=== PATIENT | male | born 1945 | race Caucasian/White ===

== ENCOUNTER 2017-08-29 17:50 | Inpatient (IN) | payer MEDICARE, BC ==
[2017-08-29 18:29] VITALS: BP 124/70
--- NOTE | 2017-08-29 18:39 | NUR ---
RECEIVED PT VIA W/C FROM ADMISSIONS SOB NOTED PT PLACED ON O2 2 LPM NC VSS EATING MEAL AT THIS TIME
[2017-08-29 19:00] VITALS: BP 157/55
--- NOTE | 2017-08-29 19:55 | NUR ---
RESUMED CARE OF PT, UP IN CHAIR WITH EYES CLOSED RESPIRATIONS EVEN AND UNLABORED ON 2LPM VIA NC. NO NEEDS NOTED AT THIS TIME, WILL CONTINUE TO MONITOR. CALL LIGHT IN REACH. SEE NURSE ASSESSMENT.
[2017-08-29 20:52] LABS: BASOPHILS 0.5 % (0-2); EOSINOPHILS 2.3 % (0-7); HEMATOCRIT 48.4 % (42.0-54.0); HEMOGLOBIN 14.7 g/dL (13.5-17.5); IMMATURE GRANULOCYTES 0.9 % (0-5); LYMPHOCYTES 17.4 % (15-50); MCH 29.2 pg (26.0-34.0); MCHC 30.4 g/dL (31.0-37.0); MCV 96.2 fL (80.0-100.0); MEAN PLATELET VOLUME 9.8 fL (7.4-10.4); MONOCYTES 7.5 % (2-11); NEUTROPHILS 71.4 % (40-80); PLATELET COUNT 168 10x3/uL (130-400); RBC 5.03 10x6/uL (4.20-6.10); WBC 7.9 10x3/uL (4.8-10.8)
--- NOTE | 2017-08-29 21:02 | NUR ---
GONE FOR XRAY
[2017-08-29 21:24] LABS: ALBUMIN 2.7 g/dL (3.4-5.0); ALKALINE PHOSPHATASE 55 U/L (46-116); ALT (SGPT) 33 U/L (10-68); BILIRUBIN - TOTAL 0.25 mg/dL (0.2-1.3); CALC OSMOLALITY 288 mosm/kg (275-300); CALCIUM 8.7 mg/dL (8.5-10.1); CARBON DIOXIDE 32.8 mmol/L (21.0-32.0); CHLORIDE - SERUM 104 mmol/L (98-107); CKMB 2.6 U/L (0.0-3.6); CREATINE KINASE 115 UL (21-232); CREATININE - SERUM 1.5 mg/dL (0.6-1.3); GLUCOSE 143 mg/dL (74-106); POTASSIUM - SERUM 4.6 mmol/L (3.5-5.1); PROTEIN - SERUM 6.3 g/dL (6.4-8.2); SODIUM 141 mmol/L (136-145); UREA NITROGEN 30 mg/dL (7-18); eGFR NON AFRICAN AMERICAN 49 mL/min (90-120)
[2017-08-29 21:25] LABS: TROPONIN-I < 0.017 ng/mL (0.000-0.060)
--- NOTE | 2017-08-29 21:54 | NUR ---
22 GAUGE TO LEFT FOREARM X 3 STICKS. SOLUMEDROL 125MG GIVEN IVP. WILL CONTINUE TO MONITOR.
[2017-08-29 23:23] VITALS: BMI 38.6
[2017-08-30] VITALS: BP 154/59
[2017-08-30 04:00] VITALS: BP 180/73
--- NOTE | 2017-08-30 04:25 | NUR ---
TRAVEL ADMINISTRATOR AT BEDSIDE TO OBTAIN VITALS, CALL LIGHT IN REACH. WILL CONTINUE WITH PLAN OF CARE.
[2017-08-30] MEDS ORDERED: SPIRIVA18 MCG INH (04:34)
[2017-08-30] MEDS ORDERED: UROXATRAL10 MG PO (04:34)
[2017-08-30] MEDS ORDERED: PROTONIX40 MG PO (04:36)
[2017-08-30] MEDS ORDERED: NOVOLOG INJ (04:36)
[2017-08-30] MEDS ORDERED: LISINOPRIL2.5 MG PO (04:36)
[2017-08-30] MEDS ORDERED: HYDROCHLOROTH12.5 M1 PO ×2 (04:37→04:40)
[2017-08-30] MEDS ORDERED: ADVAIR 250/501 DISK INH (04:37)
[2017-08-30] MEDS ORDERED: ZOCOR40 MG PO (04:38)
[2017-08-30] MEDS ORDERED: NEURONTIN 300300 MG PO (04:38)
[2017-08-30] MEDS ORDERED: REQUIP1 MG PO (04:39)
[2017-08-30] MEDS ORDERED: PROSCAR5 MG PO (04:39)
[2017-08-30] MEDS ORDERED: TRILIPIX135 MG PO (04:39)
--- NOTE | 2017-08-30 06:33 | NUR ---
NO CHANGES FROM PREVIOUS ASSESSMENT, CALL LIGHT IN REACH. WILL CONTINUE TO MONITOR.
--- NOTE | 2017-08-30 07:22 | NUR ---
PT SITTING UP IN BED SLEEPING NO S/S DISTRESS NOTED RR EVEN AND UNLABORED WILL CONT TO MONITOR
[2017-08-30 08:00] VITALS: BP 154/102
[2017-08-30 10:53] VITALS: BMI 38.2
[2017-08-30 12:03] VITALS: BP 115/92
[2017-08-30 15:54] VITALS: BP 158/63
--- NOTE | 2017-08-30 16:40 | NUR ---
PT SITTING UP IN BED AT BEDSIDE DENIES NEEDS
[2017-08-30 19:00] VITALS: BP 124/67
--- NOTE | 2017-08-30 19:37 | NUR ---
PT RESTING IN BED. ASA'CARSARMIUT. IV TO LEFT FOREARM INFUSING LWVAQUIN AT 100. PT ON 4L O2 NC. PT FSBS IS 328. PT DENIES ANY NEEDS. NO S/S OF DISTRESS. BED LOW AND CALL LIGHT IN REACH. WILL CPOC
--- NOTE | 2017-08-30 20:34 | NUR ---
PT RESTING IN BED. HOB 45. PT HAS O2 4L NC. BLOOD SUGAR 328 12 UNITS OF HUMALOG GIVEN TO LLQ. PT DENIES ANY NEEDS. NO S/S OF DISTRESS. WILL CPOC
--- NOTE | 2017-08-30 20:55 | NUR ---
PT SITTING ON SIDE OF BED TO TAKE 2100 PILLS AND EAT A SNACK WITH INSULIN. PT DENIES ANY NEEDS. NO S/S OF DISTRESS. WILL CPOC
--- NOTE | 2017-08-31 02:05 | NUR ---
PT UP TO SIDE OF BED FOR A SANDWINCH AND A CUP OF WATER. PT ATE 100% AND DRANK 200. PT NOW SITTING ON SIDE OF BED READING. DENIES NEEDS. NO S/S OF DISTRESS. WILL CPOC
--- NOTE | 2017-08-31 02:38 | NUR ---
PT C/O THROAT AND NOSE BEING DRY. PUT HUMIDITY ON NC TO HELP WITH DRYNESS. PT DENIES ANY NEEDS. NO S/S OF DISTRESS. WILL CPOC
[2017-08-31 04:00] VITALS: BP 144/64
--- NOTE | 2017-08-31 05:55 | NUR ---
PT FSBS IS 309, HUMALOG OF 12 UNITS NEEDED. WILL GIVE A SNACK SINCE TRAYS WONT BE HERE FOR A COUPLE HOURS. PT DID NOT SLEEP MUCH LAST NIGHT. HUMIDITY WORKED.PT NOSE AND THROAT FEELS BETTER. PT DENIES ANY NEEDS. NO S/S OF DISTRESS. WILL CPOC
--- NOTE | 2017-08-31 07:18 | NUR ---
pt sitting up in bed denies needs will cont to monitor
[2017-08-31 08:16] VITALS: BP 155/74
[2017-08-31 11:45] VITALS: BP 148/61
[2017-08-31 14:43] LABS: BASOPHILS 0 % (0-2); EOSINOPHILS 0 % (0-7); HEMATOCRIT 46.7 % (42.0-54.0); HEMOGLOBIN 14.6 g/dL (13.5-17.5); IMMATURE GRANULOCYTES 0.9 % (0-5); LYMPHOCYTES 3.9 % (15-50); MCH 29.4 pg (26.0-34.0); MCHC 31.3 g/dL (31.0-37.0); MEAN PLATELET VOLUME 10.2 fL (7.4-10.4); MONOCYTES 4.6 % (2-11); NEUTROPHILS 90.6 % (40-80); PLATELET COUNT 188 10x3/uL (130-400); RBC 4.97 10x6/uL (4.20-6.10); RDW 14.6 % (11.5-14.5)
[2017-08-31 15:05] LABS: ANION GAP 8.5 mmol/L (8-16); CARBON DIOXIDE 33.3 mmol/L (21.0-32.0); CREATININE - SERUM 1.5 mg/dL (0.6-1.3); POTASSIUM - SERUM 4.8 mmol/L (3.5-5.1)
[2017-08-31 16:00] VITALS: BP 164/67
--- NOTE | 2017-08-31 17:44 | NUR ---
PT PIV INFILTRATED. DC PIV WITH CATH TIP INTACT. RESITED TO R FA 22G X1 STICK. FAMILY AT BEDSIDE DENIES NEEDS
--- NOTE | 2017-08-31 19:15 | NUR ---
ROUNDING NOTE: PT IS AAOX3, SITTING UP IN BED WATCHING TV UPON ENTERING ROOM. PT HAS IVF- 1/2NS RUNNING AT [facility] W/ LEVAQUIN IV PIGGYBACK. PT IS CURRENTLY ON 4L OF OXYGEN VIA NC. RESP NONLABORED. DENIES SOB/DYSPNEA. LUNG SOUNDS SHOW DECREASED BREATH SOUNDS W/ FINE CRACKLES IN BILATERAL BASES W/ SCATTER WHEEZES ON THE LEFT. PT W/ INTERMITTENT HARSH, NONPRODUCTIVE COUHG. CONTINUES ON IV STEROIDS WELL. REQUESTING SANDWICH AND GLASS OF ICE. PATIENT IS HOPEFUL THAT HE WILL BE ABLE TO GO HOME TOMORROW TO SEE HIS GRANDSON'S FOOTBALL GAME. DENIES ANY OTHER NEEDS. WILL CONT TO FOLLOW.
[2017-08-31 20:00] VITALS: BP 158/61
[2017-09-01 04:00] VITALS: BP 151/70
[2017-09-01 05:52] LABS: BASOPHILS 0.1 % (0-2); EOSINOPHILS 0 % (0-7); HEMOGLOBIN 15.2 g/dL (13.5-17.5); IMMATURE GRANULOCYTES 0.8 % (0-5); LYMPHOCYTES 3.7 % (15-50); MCH 29.1 pg (26.0-34.0); MCV 93.9 fL (80.0-100.0); MEAN PLATELET VOLUME 10.3 fL (7.4-10.4); MONOCYTES 4.2 % (2-11); NEUTROPHILS 91.2 % (40-80); PLATELET COUNT 194 10x3/uL (130-400); RBC 5.22 10x6/uL (4.20-6.10); RDW 14.6 % (11.5-14.5); WBC 14.7 10x3/uL (4.8-10.8)
[2017-09-01 06:12] LABS: ANION GAP 9.4 mmol/L (8-16); CALCIUM 9.2 mg/dL (8.5-10.1); CARBON DIOXIDE 33.8 mmol/L (21.0-32.0); CREATININE - SERUM 1.3 mg/dL (0.6-1.3); POTASSIUM - SERUM 5.2 mmol/L (3.5-5.1)
--- NOTE | 2017-09-01 07:40 | NUR ---
PT SITTING UP IN BED DENIES NEEDS WILL CONT TO MONITOR
[2017-09-01 08:00] VITALS: BP 149/76
--- NOTE | 2017-09-01 08:00 | NUR ---
PT IS ANTICIPATING DC HOME TODAY. PT IS STILL ON 4L NC. PT IS CURRENTLY 95% O2 SAT. DECREASED O2 TO 3L WILL CONT TO MONITOR AND WEAN TO KEEP ABOVE 92%.
--- NOTE | 2017-09-01 10:42 | NUR ---
PT AT REST ON RA IS 89%. WALK TEST WITH PT..ON RA PT DESATTED TO 77%. WHEN APPLIED 2L NC BACK ON PT PT CAME UP TO 92% ON EXERTION AND 92% AT REST WELL. NOTIFIED KALI FROM CASE MANAGEMENT
--- NOTE | 2017-09-01 11:54 | NUR ---
PAGED DR VARGAS TO ASK ABOUT DC
[2017-09-01 12:00] VITALS: BP 155/64
[2017-09-01] MEDS ORDERED: BENZONATATE200 MG PO (12:19)
[2017-09-01] MEDS ORDERED: MUCINEX DM ER1 EAC1 PO (12:19)
[2017-09-01] MEDS ORDERED: PREDNISONE10 MG PO (12:20)
[2017-09-01] MEDS ORDERED: LEVAQUIN750 MG PO (12:20)
--- NOTE | 2017-09-01 14:06 | NUR ---
Patient Name: BRIDGER CANTU Admission Status: Urgent Accout number: [id number] Admission Date: 08-29-2017 : 1945 Admission Diagnosis:CHRONIC OBSTRUCTIVE PULMONARY DISEASE W (ACUTE) EXACERB Attending: VLADIMIR MUHAMMAD Current LOS: 3 Anticipated DC Date: 09-01-2017 Planned Disposition: Home Primary Insurance: MEDICARE A & B Discharge Planning Comments: * Is the patient Alert and Oriented? Yes 0 * How many steps to enter\exit or inside your home? 3 0 * PCP DR. SCHROEDER PT REPORTS HE IS IN PROCESS OF CHANGING TO DR. MUHAMMAD 0 * Pharmacy [facility] IN [place] OR [facility] 0 * Preadmission Environment Home with Family 0 * ADLs Independent 0 * Equipment CPAP Nebulizer Oxygen 0 * Other Equipment HOME OXYGEN ONLY [facility] [place], MEDICAL EQUIPMENT PROVIDER 0 * List name and contact numbers for known caregivers / representatives who currently or will assist patient after discharge: MELINDA CANTU, SPOUSE, 0 * Community resources currently utilized None 0 * Please name any agencies selected above. NONE 0 * Additional services required to return to the preadmission environment? No 0 * Can the patient safely return to the preadmission environment? Yes 0 * Has this patient been hospitalized within the prior 30 days at any hospital? No 0 CM RECEIVED ORDER FOR OXYGEN, MET WITH PT AND SPOUSE IN ROOM TO DISCUSS DISCHARGE PLANNING AND NEEDS. PT IS HARD OF HEARING. PT REPORTS LIVING AT HOME INDEPENDENTLY WITH HIS SPOUSE. PT HAS CPAP, NEBULIZER AND HOME OXYGEN FROM [facility] [place]. PT HAS NO OUTSIDE SERVICES ASSISTING IN THE HOME. CM DISCUSSED AVAILABILITY OF HOME HEALTH, REHAB SERVICES AND MEDICAL EQUIPMENT. PT DENIES DISCHARGE NEEDS OTHER THAN PORTABLE OXYGEN; PT ASKED THAT CM HURRY HE IS GOING TO HIS [employer]SON[employer] FOOTBALL GAME TONIGHT. PT'S SPOUSE HERE TO PICK HIM UP FOR DISCHARG HOME. IMPORTANT MESSAGE FROM MEDICARE PROVIDED AND EXPLAINED. CM CALLED [facility] [place], , SPOKE TO NICKY, DISCUSSED ORDER; NICKY WILL HAVE PORTABLE OXYGEN DELIVERED TO HOSPITAL SHORTLY FROM THE [facility] OFFICE FOR DISCHARGE HOME TODAY. CM FAXED TESTING, ORDER AND CLINICAL INFORMATION TO [facility] AT [phone]. SEWER BRICKLAYER NURSE NOTIFIED. Freight Coordinator: Arron Alejandro
--- NOTE | 2017-09-01 14:14 | NUR ---
STILL WAITING ON APPT TIMES AND OXYGEN TO BE DELIVERED. DC PIV WITH CATH TIP INTACT. PT VERY ANXIOUS AND WANTS TO LEAVE BY 1530 TO GET TO HIS [employer]SON[employer] FOOT[employer] GAME. PT SAYS IF WE DO NOT HAVE APPT READY BY THE TIME HIS OXYGEN GETS HERE THEN HE WILL JUST MAKE HIS OWN APPT.
--- NOTE | 2017-09-01 14:53 | NUR ---
WENT OVER DC PAPERWORK WITH PT PT VERBALIZES UNDERSTANDING. PT STILL WAITING ON HOME O2 TO BE DELIVERED
--- NOTE | 2017-09-01 15:13 | NUR ---
HOME O2 WAS DELIVERED. PT WAS WHEELED OUT TO FRONT ENTRANCE TO HEAD TO HIS [employer]AND[employer]OT[employer] GAME WITH HIS .
--- NOTE | 2017-09-12 11:43 | CN ---
PATIENT NAME:BRIDGER KAPADIA MEDICAL RECORD: [id number] : 45 LOCATION:[facility] D.2133 ADMIT DATE: 08/29/17 ACCOUNT: [id number] CONSULTING PHYSICIAN: TORSTEN VARGAS MD REFERRING PHYSICIAN: BRIAN MCDERMOTT MD DATE OF CONSULTATION: 08/30/2017 Pulmonary Consultation CONSULT REQUESTING PHYSICIAN: Dr. Brian Mcdermott. REASON FOR CONSULTATION: Acute exacerbation of COPD and acute cough. HISTORY OF PRESENT ILLNESS: Mr. Kapadia is a 72-year-old gentleman who has a history of COPD, obstructive sleep apnea. He follows with Dr. Taye Sanches in [place] for years. According to the patient, he is sick for the last 4 weeks. He is coughing. The cough is sometimes spasmodic in nature. He has pulled a muscle in the stomach with severe cough. The cough is sometimes productive of white yellow color sputum production. There are no fever and chills, no night sweats. He does have shortness of breath with exertion. REVIEW OF SYSTEMS: Mainly in the history of present illness. PAST MEDICAL HISTORY: 1. COPD. 2. Diabetes mellitus. 3. Obstructive sleep apnea. PAST SURGICAL HISTORY: 1. Joint bilateral knee replacement. 2. Lumbar surgery. ALLERGIES: There are no known drug allergies. MEDICATIONS: On Vitasol was reviewed. PERSONAL AND SOCIAL HISTORY: The patient was an active smoker until 4 weeks ago. He is a nondrinker. FAMILY HISTORY: Noncontributory. PHYSICAL EXAMINATION: GENERAL: Now, the patient is lying comfortably, but he has cough once a while. VITAL SIGNS: The blood pressure is 158/63, pulse is 75, respirations 20, temperature 97.7, SpO2 is 95% on 4 liter nasal cannula. HEENT: Conjunctivae are pink. Sclerae are not icteric. NECK: Supple, no JVD. CHEST: There is prolonged expiration with wheezing. HEART: Rhythm regular, normal sound, no murmur. ABDOMEN: Soft. Bowel sounds present. No hepatosplenomegaly. RECTAL: Deferred. EXTREMITIES: No cyanosis, no clubbing. There is 1+ pedal edema. SKIN: Warm, normal turgor. CENTRAL NERVOUS SYSTEM: The patient is awake and alert. There is no obvious cranial nerve abnormality. The gait was not tested. CONSULT REPORT [id number] BRIDGER KAPADIA IMAGING: Chest radiograph, there is increased interstitial marking. No consolidation as such. LABORATORY DATA: CBC: WBC 7.9, hemoglobin 14.7, hematocrit 48.4, the platelet count 168. Chemistry: Sodium 141, potassium 4.6. IMPRESSION: 1. Acute exacerbation of chronic obstructive pulmonary disease. 2. Acute bronchitis. 3. Chronic hypoxic respiratory failure. 4. Acute cough. 5. Obstructive sleep apnea. 6. Increased interstitial marking, possible pneumonitis. 7. Obstructive sleep apnea on CPAP. 8. Chronic hypoxic respiratory failure. RECOMMENDATIONS: 1. Adjust the dose of methylprednisolone IV. Start on Levaquin IV. Start on budesonide and Brovana nebulizer. 2. Albuterol/ipratropium nebulizer. 3. Supplemental oxygen and the patient to continue his CPAP at night. 4. We will check the CT scan of the chest to rule out pulmonary fibrosis. 5. Follow up labs and chest radiograph. Dr. Mcdermott, thank you for involving me in the care of Mr. Kapadia. TRANSINT:[id number] Voice Confirmation ID: [id number] DOCUMENT ID: [id number] TORSTEN VARGAS MD at 1143 CC: BRIAN MCDERMOTT MD [id number] DICTATION DATE: 08/30/171742 TAKE DOWN INSPECTOR: 08/31/17 0013 DIS IN 09/01/17 [id number] [place] [address]
== END 2017-09-01 15:13 | disposition home or self-care (01) | DRG 190 ==
LOC: D.M2 17:50
PROVIDERS: Family Medicine; ADMIT Emergency Medicine
DX: J44.0 Chronic obstructive pulmonary disease with (acute) lower respiratory infection (principal); J18.9 Pneumonia, unspecified organism; J96.11 Chronic respiratory failure with hypoxia; J98.11 Atelectasis; J44.1 Chronic obstructive pulmonary disease with (acute) exacerbation; J20.9 Acute bronchitis, unspecified; E11.65 Type 2 diabetes mellitus with hyperglycemia; G47.33 Obstructive sleep apnea (adult) (pediatric); Z87.891 Personal history of nicotine dependence

== ENCOUNTER 2017-09-29 20:47 | Inpatient (IN) | payer MEDICARE, BC ==
[~2017-09-29 20:47] MED LIST: ADVAIR 250/501 DISK INH; BENZONATATE200 MG PO; HYDROCHLOROTH12.5 M1 PO; LEVAQUIN750 MG PO; LISINOPRIL2.5 MG PO; MUCINEX DM ER1 EAC1 PO; NEURONTIN 300300 MG PO; NOVOLOG INJ; PREDNISONE10 MG PO; PROSCAR5 MG PO; PROTONIX40 MG PO; REQUIP1 MG PO; SPIRIVA18 MCG INH; TRILIPIX135 MG PO; UROXATRAL10 MG PO; ZOCOR40 MG PO
[2017-09-29 21:36] LABS: BASOPHILS 0.3 % (0-2); EOSINOPHILS 1.9 % (0-7); HEMATOCRIT 42.5 % (42.0-54.0); HEMOGLOBIN 13.1 g/dL (13.5-17.5); IMMATURE GRANULOCYTES 1.3 % (0-5); LYMPHOCYTES 14.1 % (15-50); MCH 29.4 pg (26.0-34.0); MCHC 30.8 g/dL (31.0-37.0); MCV 95.5 fL (80.0-100.0); MEAN PLATELET VOLUME 9.1 fL (7.4-10.4); MONOCYTES 10.9 % (2-11); NEUTROPHILS 71.5 % (40-80); PLATELET COUNT 171 10x3/uL (130-400); RBC 4.45 10x6/uL (4.20-6.10); RDW 15.4 % (11.5-14.5); WBC 6.9 10x3/uL (4.8-10.8)
[2017-09-29 21:54] LABS: ALBUMIN 2.4 g/dL (3.4-5.0); ANION GAP 6.4 mmol/L (8-16); BILIRUBIN - TOTAL 0.52 mg/dL (0.2-1.3); CALCIUM 8.4 mg/dL (8.5-10.1); CARBON DIOXIDE 34.7 mmol/L (21.0-32.0); CREATININE - SERUM 1.4 mg/dL (0.6-1.3); POTASSIUM - SERUM 5.1 mmol/L (3.5-5.1)
[2017-09-30] VITALS (8 sets, daily range): BP systolic 110–157; BP diastolic 53–87; BMI 36.9
[2017-09-30] MEDS ORDERED: FENOFIBRATE134 MG PO (01:01)
[2017-09-30] MEDS ORDERED: NOVOLOG100 U/M1 SC (01:03)
[2017-09-30] MEDS ORDERED: NOVOLIN 70/30 110 ML SC (01:30)
--- NOTE | 2017-09-30 07:30 | NUR ---
RECIEVED PT DURING WALKING ROUNDS. PT RESTING IN BED WITH NO COMPLAINTS OF PAIN OR DISCOMFORT AT THIS TIME. ASSESSMENT DONE PER FLOWSHEET. BED IN LOW POSITION AND CALL LIGHT WITHIN REACH. WILL CONTINUE TO MONITOR.
[2017-09-30 11:48] LABS: BASOPHILS 0 % (0-2); EOSINOPHILS 0 % (0-7); HEMATOCRIT 44.6 % (42.0-54.0); HEMOGLOBIN 13.8 g/dL (13.5-17.5); IMMATURE GRANULOCYTES 1.4 % (0-5); LYMPHOCYTES 5.6 % (15-50); MCH 29.5 pg (26.0-34.0); MCHC 30.9 g/dL (31.0-37.0); MCV 95.3 fL (80.0-100.0); MEAN PLATELET VOLUME 9.7 fL (7.4-10.4); PLATELET COUNT 209 10x3/uL (130-400); RBC 4.68 10x6/uL (4.20-6.10); RDW 15.2 % (11.5-14.5); WBC 7.7 10x3/uL (4.8-10.8)
[2017-09-30 12:17] LABS: ALBUMIN 2.6 g/dL (3.4-5.0); ANION GAP 9.8 mmol/L (8-16); BILIRUBIN - TOTAL 0.38 mg/dL (0.2-1.3); CALCIUM 8.9 mg/dL (8.5-10.1); CARBON DIOXIDE 32.9 mmol/L (21.0-32.0); CREATININE - SERUM 1.4 mg/dL (0.6-1.3); POTASSIUM - SERUM 5.7 mmol/L (3.5-5.1); PROTEIN - SERUM 6.9 g/dL (6.4-8.2)
[2017-10-01 05:05] VITALS: BP 146/57
[2017-10-01 06:12] LABS: BASOPHILS 0.1 % (0-2); EOSINOPHILS 0.1 % (0-7); HEMATOCRIT 43.5 % (42.0-54.0); HEMOGLOBIN 13.5 g/dL (13.5-17.5); IMMATURE GRANULOCYTES 1.1 % (0-5); LYMPHOCYTES 4.3 % (15-50); MCH 29.1 pg (26.0-34.0); MCV 93.8 fL (80.0-100.0); MEAN PLATELET VOLUME 9.6 fL (7.4-10.4); MONOCYTES 4.2 % (2-11); NEUTROPHILS 90.2 % (40-80); PLATELET COUNT 218 10x3/uL (130-400); RBC 4.64 10x6/uL (4.20-6.10); RDW 14.9 % (11.5-14.5)
[2017-10-01 06:19] LABS: WBC 10.7 10x3/uL (4.8-10.8)
[2017-10-01 06:45] LABS: ALBUMIN 2.5 g/dL (3.4-5.0); ANION GAP 9.1 mmol/L (8-16); BILIRUBIN - TOTAL 0.3 mg/dL (0.2-1.3); CALCIUM 9.2 mg/dL (8.5-10.1); CREATININE - SERUM 1.4 mg/dL (0.6-1.3); POTASSIUM - SERUM 5.1 mmol/L (3.5-5.1); PROTEIN - SERUM 6.5 g/dL (6.4-8.2)
--- NOTE | 2017-10-01 08:11 | NUR ---
AWAKE AND ALERT. ORIENTED X3. NO C/O AT THIS TIME. SITTING UP ON SIDE OF BED. LUNGS HAVE FAINT CRACKLES THROUGOUT AND DIMINISHED IN LOWER LOBES. REPORTS PRODUCTIVE COUGH WITH WHITISH SPUTUM. WILL MONITOR. SKIN IS INTACT WITHOUT REDNESS BUT 2 PLUS EDEMA NOTED TO BILATERAL LOWER EXTREMETIES. WILL MONITOR. SL TO RIGHT HAND IS PATENT WITHOUT REDNESS AT INSERTION SITE. DENIES NEEDS.
[2017-10-01 08:33] VITALS: BP 147/93
--- NOTE | 2017-10-01 10:00 | NUR ---
UP IN ROOM PER SELF. WAITING ON DR TO COME BY SO HE CAN SHOWER. NO C/O AT THIS TIME.
--- NOTE | 2017-10-01 12:00 | NUR ---
FSBS 391. GIVEN 16 UNITS HUMALOG SUBQ PER SS. LUNCH SERVED IN ROOM.
--- NOTE | 2017-10-01 13:00 | NUR ---
SHOWERED WITH SET UP ASSIST ONLY. NO C/O INCREASED PAIN WITH ACTIVITY. DENIES NEEDS.
--- NOTE | 2017-10-01 17:00 | NUR ---
FSBS 146. NO COVERAGE REQUIRED. SUPPER SERVED IN ROOM. ATE ALL OF MEAL. DENIES NEEDS. NO CHANGES NOTED.
[2017-10-01 17:06] VITALS: BP 112/47
[2017-10-01 21:56] VITALS: BP 149/60
[2017-10-02 00:26] VITALS: BP 132/69
--- NOTE | 2017-10-02 03:09 | NUR ---
ASSESSED, AT THE BEGINNING OF THE SHIFT. PT IS ALERT AND ORIENTED, ABLE TO VERBALIZE NEEDS. HE HAS TELEMETRY IN PLACE AND IT IS SHOWING A 60-70 RANGE WITH NORMAL SINUS RYTHUM. HE IS ABLE TO TURN AND REPOSITION FOR COMFORT AND IS ALSO GETTING UP TO THE BATHROOM AD KORY. STARTING TO COUGH UP SOME AND HIS LUNG SOUNDS ARE MUCH BETTER TONIGHT THAN LAST. HIS BLOOD SUGAR WAS BETTER TONIGHT AND HE IS NOW ON HIS ROUTINE MEDS. THE BED IS LOW, RAILS UP X'S 2 WITH THE CALL LIGHT AT HAND. HIS SON VISITED AND THEY WATCHED FOOTBALL FOR A WHILE BEFORE BEDTIME.
[2017-10-02 05:05] LABS: BASOPHILS 0 % (0-2); EOSINOPHILS 0.2 % (0-7); HEMATOCRIT 45.4 % (42.0-54.0); HEMOGLOBIN 14.2 g/dL (13.5-17.5); IMMATURE GRANULOCYTES 1.3 % (0-5); LYMPHOCYTES 5.2 % (15-50); MCH 29.2 pg (26.0-34.0); MCHC 31.3 g/dL (31.0-37.0); MCV 93.2 fL (80.0-100.0); MEAN PLATELET VOLUME 9.6 fL (7.4-10.4); MONOCYTES 4.8 % (2-11); NEUTROPHILS 88.5 % (40-80); PLATELET COUNT 230 10x3/uL (130-400); RBC 4.87 10x6/uL (4.20-6.10); WBC 11.7 10x3/uL (4.8-10.8)
[2017-10-02 05:39] LABS: ALBUMIN 2.8 g/dL (3.4-5.0); BILIRUBIN - TOTAL 0.26 mg/dL (0.2-1.3); CALCIUM 9.7 mg/dL (8.5-10.1); CARBON DIOXIDE 37.8 mmol/L (21.0-32.0); CREATININE - SERUM 1.5 mg/dL (0.6-1.3); PROTEIN - SERUM 6.9 g/dL (6.4-8.2)
[2017-10-02 05:47] VITALS: BP 147/71
[2017-10-02 05:48] LABS: ANION GAP 8.5 mmol/L (8-16); POTASSIUM - SERUM 4.3 mmol/L (3.5-5.1)
[2017-10-02 08:10] VITALS: BP 131/57
--- NOTE | 2017-10-02 08:39 | NUR ---
AWAKE AND ALERT. ORIENTED X3. NO C/O THIS AM. LUNGS HAVE FAINT CRACKLES THROUGHOUT LUNG MUÑOZ OCCASSIONAL PRODUCTIVE COUGH NOTED. SKIN IS INTACT WITHOUT REDNESS. 1-2 PLUS EDEMA NOTED TO BILATERAL LOWER EXTREMETIES. THIS IS IMPROVED FROM YESTERDAY. SL TO RIGHT HAND IS PATENT WITHOUT REDNESS AT INSERTION SITE. SITTING UP IN CHAIR AT BEDSIDE EATING BREAKFAST.
--- NOTE | 2017-10-02 10:00 | NUR ---
UP IN CHAIR AT BEDSIDE. ATE ALL OF BREAKFAST. DENIES NEEDS.
--- NOTE | 2017-10-02 12:00 | NUR ---
IV TO RIGHT HAND RED AND SWOLLEN. D/C WITH CATHETER INTACT. RESITED TO RIGHT FOREARM AFTER ONE ATTEMPT WITH 22G. TOLERATED WELL.
[2017-10-02 12:51] VITALS: BP 137/67
[2017-10-02 16:55] VITALS: BP 103/48
--- NOTE | 2017-10-02 18:09 | NUR ---
ATE ALL OF SUPPER. FSBS PRIOR TO MEAL WAS 240. GIVEN 12 UNITS HUMALOG SUBQ PER SS. NO CHANGES NOTED. DENIES NEEDS.
--- NOTE | 2017-10-02 19:53 | NUR ---
RN NOTE: PT RESTING QUIETLY IN SEMI ALVAREZ'S POSITION WITH UNLABORED BREATHING. GAVE SCHEDULED SOLUMEDROL IVP. WILL MONITOR FOR NEEDS.
--- NOTE | 2017-10-02 21:38 | NUR ---
GIVEN SNACK, APPLESAUCE AND GRANHAM CRACKER.
[2017-10-02 22:33] VITALS: BP 108/61
--- NOTE | 2017-10-02 23:47 | NUR ---
SIT UP IN BED AND WATCH TV.
[2017-10-03 01:36] VITALS: BP 129/53
--- NOTE | 2017-10-03 02:17 | NUR ---
REST IN BED, EYE CLOSE, CALL LIGHT IN REACH.
[2017-10-03 05:04] VITALS: BP 133/70
[2017-10-03 05:18] LABS: BASOPHILS 0 % (0-2); EOSINOPHILS 0 % (0-7); HEMATOCRIT 43.4 % (42.0-54.0); HEMOGLOBIN 13.5 g/dL (13.5-17.5); IMMATURE GRANULOCYTES 1.3 % (0-5); LYMPHOCYTES 3.5 % (15-50); MCH 29.1 pg (26.0-34.0); MCHC 31.1 g/dL (31.0-37.0); MCV 93.5 fL (80.0-100.0); MEAN PLATELET VOLUME 9.8 fL (7.4-10.4); MONOCYTES 5.8 % (2-11); NEUTROPHILS 89.4 % (40-80); PLATELET COUNT 223 10x3/uL (130-400); RBC 4.64 10x6/uL (4.20-6.10); WBC 10.8 10x3/uL (4.8-10.8)
[2017-10-03 05:52] LABS: ALBUMIN 2.5 g/dL (3.4-5.0); ANION GAP 8.8 mmol/L (8-16); BILIRUBIN - TOTAL 0.23 mg/dL (0.2-1.3); CARBON DIOXIDE 36.4 mmol/L (21.0-32.0); CREATININE - SERUM 1.4 mg/dL (0.6-1.3); POTASSIUM - SERUM 4.2 mmol/L (3.5-5.1); PROTEIN - SERUM 5.9 g/dL (6.4-8.2)
[2017-10-03 08:21] VITALS: BP 139/59
[2017-10-03] MEDS ORDERED: BENZONATATE200 MG PO (11:08)
[2017-10-03] MEDS ORDERED: PULMICORT0.5 MG/21 UPD (11:09)
[2017-10-03] MEDS ORDERED: FLORAJEN3 CAPS460 MG PO (11:09)
[2017-10-03] MEDS ORDERED: MUCINEX DM ER1 EAC1 PO (11:09)
[2017-10-03] MEDS ORDERED: PREDNISONE10 MG PO (11:10)
[2017-10-03] MEDS ORDERED: LEVAQUIN500 MG PO (11:10)
[2017-10-03] MEDS ORDERED: BROVANA15 MCG/2 M INH (11:11)
[2017-10-03] MEDS ORDERED: IPRAT-ALBUT 0.5-3 ML UPD (11:11)
--- NOTE | 2017-10-03 13:04 | NUR ---
Patient Name: BRIDGER KAPADIA Admission Status: ER Accout number: [id number] Admission Date: 09-29-2017 : 1945 Admission Diagnosis: Attending: LEATHA POWELL Current LOS: 4 Anticipated DC Date: Planned Disposition: Home Primary Insurance: MEDICARE A & B Discharge Planning Comments: CM met with patient to assess discharge planning needs. Patient stated that he lives independently with his at home and that is his discharge plan. His daughter will be the one to drive him home today. He has home O2 and a nebulizer at home. He denies any HH and does not want me to set it up prior to discharge. CM will continue to follow and assist with discharge planning needs. PCP: Baldemar Lomas Inna Kapadia () [phone] Criminal Judge: Linsey Henson * Is the patient Alert and Oriented? Yes 0 * How many steps to enter\exit or inside your home? 0 0 * PCP Baldemar 0 * Pharmacy [facility] 0 * Preadmission Environment Home with Family 0 * ADLs Independent 0 * Equipment Nebulizer Oxygen 0 * List name and contact numbers for known caregivers / representatives who currently or will assist patient after discharge: Inna Kapadia () [phone] 0 * Community resources currently utilized None 0 * Additional services required to return to the preadmission environment? No 0 * Can the patient safely return to the preadmission environment? Yes 0 * Has this patient been hospitalized within the prior 30 days at any hospital? No 0 Grand Total: 0
[2017-10-03 13:28] VITALS: BP 140/72
--- NOTE | 2017-10-12 12:12 | CN ---
PATIENT NAME:BRIDGER KAPADIA MEDICAL RECORD: [id number] : 45 LOCATION:D.[facility] ADMIT DATE: 09/29/17 ACCOUNT: [id number] CONSULTING PHYSICIAN: TORSTEN VARGAS MD REFERRING PHYSICIAN: LEATHA POWELL DO DATE OF CONSULTATION: 09/30/2017 CONSULT REQUESTING PHYSICIAN: Leatha Powell DO REASON FOR CONSULTATION: Acute exacerbation of COPD. HISTORY OF PRESENT ILLNESS: Mr. Kapadia is a 72-year-old gentleman, very well known to me. According to the patient, he had some fever, coughing yesterday. He also has shortness of breath. The patient was brought into the ER and admitted for acute exacerbation of COPD. He denies any chest pain. He has bilateral lower extremity edema. REVIEW OF SYSTEMS: Mainly in the history of present illness. PAST MEDICAL HISTORY: 1. COPD. 2. Diabetes mellitus. 3. Obstructive sleep apnea. 4. Gastroesophageal reflux disease. 5. Edema. 6. Chronic hypoxic respiratory failure. 7. Diabetes mellitus. PAST SURGICAL HISTORY: He has a knee and back surgery. ALLERGIES: No known drug allergies. PRESENT MEDICATIONS: On [employer] was reviewed. PERSONAL AND SOCIAL HISTORY: The patient is . He lives with his . He has quit smoking 2 months ago. He is a nondrinker. FAMILY HISTORY: Noncontributory. PHYSICAL EXAMINATION: GENERAL: Now, the patient is lying comfortably in bed. He is not in acute distress. VITAL SIGNS: The blood pressure is 152/74, pulse is 72, respirations 14, temperature 97.9, SpO2 95% on 3 liters nasal cannula. HEENT: Conjunctivae pink, sclerae nonicteric. NECK: Supple, no JVD. CHEST: The chest excursion is minimal on both sides. There are bibasilar crackles. No wheezing. HEART: Rhythm regular, normal sound, no murmur. ABDOMEN: Soft. Bowel sounds present. No hepatosplenomegaly. RECTAL: Deferred. EXTREMITIES: No cyanosis, no clubbing. There are 2+ pedal edema. SKIN: Warm, normal turgor. CENTRAL NERVOUS SYSTEM: The patient is awake and alert. There are no obvious cranial nerve abnormalities. The gait was not tested. CONSULT REPORT [id number] BRIDGER KAPADIA IMAGING: Chest radiograph, there is increased interstitial marking. There is no consolidation as such. There are bibasilar atelectasis. OTHER LABORATORY DATA: CBC: WBC 7.7, hemoglobin 13.8, hematocrit 44.6, platelet count 209. Chemistry: Sodium 137, potassium 5.7, BUN is 35, creatinine 1.4, glucose 316. IMPRESSION: 1. Acute exacerbation of chronic obstructive pulmonary disease. 2. Acute bronchitis. 3. Acute cough. 4. Dyspnea on exertion. 5. Chronic hypoxic respiratory failure. 6. Obstructive sleep apnea. 7. Bibasilar atelectasis. 8. Gastroesophageal reflux disease. RECOMMENDATION: 1. Albuterol-ipratropium nebulizer. 2. Brovana-budesonide nebulizer. 3. Adjust the antitussive and mucolytics. 4. Adjust the dose of Levaquin. 5. Continue Lasix. 6. Follow up labs and chest radiograph. Dr. Powell, thank you for involving me in the care of Mr. Kapadia. TRANSINT:[id number] Voice Confirmation ID: [id number] DOCUMENT ID: [id number] TORSTEN VARGAS MD at 1212 CC: LEATHA POWELL DO [id number] DICTATION DATE: 09/30/17 1417 CHIROPRACTOR ASSISTANT: 09/30/17 1538 DIS IN 10/03/17 [place] [id number] [facility] [place] [address]
== END 2017-10-03 15:30 | disposition home or self-care (01) | DRG 190 ==
LOC: D.ER 20:47 → D.MS 22:51
PROVIDERS: Emergency Medicine; ADMIT Family Medicine
DX: J44.0 Chronic obstructive pulmonary disease with (acute) lower respiratory infection (principal); J18.1 Lobar pneumonia, unspecified organism; J96.11 Chronic respiratory failure with hypoxia; J98.11 Atelectasis; J44.1 Chronic obstructive pulmonary disease with (acute) exacerbation; J20.9 Acute bronchitis, unspecified; G47.33 Obstructive sleep apnea (adult) (pediatric); K21.9 Gastro-esophageal reflux disease without esophagitis

== ENCOUNTER 2017-10-24 17:15 | Inpatient (IN) | payer MEDICARE, BC ==
[~2017-10-24] VITALS: Ht 175.3 cm; Wt 117.7 kg
[~2017-10-24 17:15] MED LIST changes: +BROVANA15 MCG/2 M INH; +FENOFIBRATE134 MG PO; +FLORAJEN3 CAPS460 MG PO; +IPRAT-ALBUT 0.5-3 ML UPD; +LEVAQUIN500 MG PO; +NOVOLIN 70/30 110 ML SC; +NOVOLOG100 U/M1 SC; +PULMICORT0.5 MG/21 UPD
--- NOTE | 2017-10-24 18:15 | NUR ---
REC'D TO ROOM 2236 AWAKE AND ALERT SITTING IN CHAIR IN ROOM. RESP EVEN AND UNLABORED WITH NO DISTRESS NOTED. HAS 02 IN USE VIA N/C @ 2 L/M. CAN EXPRESS NEEDS AND WANTS. NO C/O NOTED OR VOICED AT THIS TIME. ASSESSMENT COMPLETED. C/L IN REACH AT BEDSIDE.
[2017-10-24 19:08] LABS: BASOPHILS 0.4 % (0-2); EOSINOPHILS 2.5 % (0-7); HEMATOCRIT 41.3 % (42.0-54.0); HEMOGLOBIN 12.9 g/dL (13.5-17.5); IMMATURE GRANULOCYTES 2.3 % (0-5); LYMPHOCYTES 18.8 % (15-50); MCH 29.6 pg (26.0-34.0); MCHC 31.2 g/dL (31.0-37.0); MCV 94.7 fL (80.0-100.0); MEAN PLATELET VOLUME 9.4 fL (7.4-10.4); MONOCYTES 8.2 % (2-11); NEUTROPHILS 67.8 % (40-80); PLATELET COUNT 198 10x3/uL (130-400); RBC 4.36 10x6/uL (4.20-6.10); RDW 15.7 % (11.5-14.5); WBC 7.3 10x3/uL (4.8-10.8)
[2017-10-24 19:27] LABS: CALC OSMOLALITY 286 mosm/kg (275-300); CALCIUM 8.7 mg/dL (8.5-10.1); CARBON DIOXIDE 32.6 mmol/L (21.0-32.0); CHLORIDE - SERUM 103 mmol/L (98-107); POTASSIUM - SERUM 4.6 mmol/L (3.5-5.1); SODIUM 142 mmol/L (136-145); UREA NITROGEN 18 mg/dL (7-18); eGFR NON AFRICAN AMERICAN 78 mL/min (90-120)
[2017-10-24 19:33] LABS: GLUCOSE 142 mg/dL (74-106)
[2017-10-24 20:00] VITALS: BP 167/69
--- NOTE | 2017-10-24 20:37 | NUR ---
A&O, SON IN ROOM, CALL LIGHT IN REACH, BED LOWEST POSITION, COMPLAINS OF A WOUND ON BOTTOM, MEPILEX APPLIED, WOUND CARE CONSULTED, WILL CONTINUE TO MONITOR
[2017-10-25 04:00] VITALS: BP 145/65
[2017-10-25 06:34] VITALS: BP 167/69; Ht 175.3 cm; Wt 117.7 kg
--- NOTE | 2017-10-25 08:08 | NUR ---
MR CANTU IS RECEIVED THIS AM AMBULATING IN ROOM. HE OFFERS NO COMPLOAINTS AT THIS TIME. HE STATES THAT HIS BREATHING IS BETTER. HE IS ON O2 VIA NASAL CANNULA AT 3 LITERS. HE IS ALERT AND ORIENTED. LUNGS- CLEAR. HEART- RRR. ABD- [place], [place], BS+. EXT- NO EDEMA NOTED. IV LEFT HAND PATENT WITH NS INFUSING. BS WAS 399 THIS AM AND WAS GIVEN 10 UNITS. BED IS LOW, SIDE RAILS UP X 2 AND CALL LIGHT IN REACH.
[2017-10-25 08:40] VITALS: BP 142/57
--- NOTE | 2017-10-25 10:43 | NUR ---
Patient Name: BRIDGER CANTU Admission Status: Elective Accout number: [id number] Admission Date: 10-24-2017 : 1945 Admission Diagnosis: Attending: VLADIMIR MUHAMMAD Current LOS: 1 Anticipated DC Date: 10-28-2017 Planned Disposition: Home Primary Insurance: MEDICARE A & B Discharge Planning Comments: CM MET WITH PATIENT REGARDING D/C NEEDS AND PLANS. PATIENT STATED HE LIVES WITH HIS (MELINDA) AND SHE WILL DRIVE HIM HOME AT DISCHARGE. PATIENTS PCP IS DR. MUHAMMAD AND PHARMACY IS [facility] IN [place]. PATIENT STATED THERE IS ONE STEP TO ENTER HOME AND NO STAIRS INSIDE. PATIENT IS INDEPENDENT WITH HIS CARE AND HAS A BS COMMODE, CANE, SHOWER CHAIR, WALKER, WHEELCHAIR, NEBULIZER, GLUCOMETER, OXYGEN, AND PORTABLE OXYGEN AT HOME. PATIENT DENIES THE NEED FOR HOME HEALTH. CM WILL CONTINUE TO FOLLOW PATIENT WITH D/C NEEDS AND PLANS. PCP DR[facility] IN [place]- [phone] MELINDA () [phone] Cardiac Cath Technologist: Ratna Brown Is the patient Alert and Oriented? Yes 0 * How many steps to enter\exit or inside your home? 1 0 * PCP DR. MUHAMMAD 0 * Pharmacy [facility] IN [place] 0 * Preadmission Environment Home with Family 0 * ADLs Independent 0 * Equipment Bedside Commode Cane Glucometer Nebulizer Oxygen Shower Chair Walker Wheelchair 0 * List name and contact numbers for known caregivers / representatives who currently or will assist patient after discharge: MELINDA () [phone] * Community resources currently utilized None 0 * Additional services required to return to the preadmission environment? Yes 0 * Can the patient safely return to the preadmission environment? Yes 0 * Has this patient been hospitalized within the prior 30 days at any hospital? No 0 Grand Total: 0
[2017-10-25 10:51] LABS: BASOPHILS 0.1 % (0-2); EOSINOPHILS 0.1 % (0-7); HEMATOCRIT 39.1 % (42.0-54.0); HEMOGLOBIN 12.4 g/dL (13.5-17.5); IMMATURE GRANULOCYTES 1.3 % (0-5); LYMPHOCYTES 7.4 % (15-50); MCH 29.6 pg (26.0-34.0); MCHC 31.7 g/dL (31.0-37.0); MCV 93.3 fL (80.0-100.0); MEAN PLATELET VOLUME 9.4 fL (7.4-10.4); MONOCYTES 1.9 % (2-11); NEUTROPHILS 89.2 % (40-80); PLATELET COUNT 204 10x3/uL (130-400); RBC 4.19 10x6/uL (4.20-6.10); RDW 15.4 % (11.5-14.5); WBC 8.6 10x3/uL (4.8-10.8)
--- NOTE | 2017-10-25 11:10 | NUR ---
FSBS WAS 391.
--- NOTE | 2017-10-25 11:17 | NUR ---
VIRAL MORTON HERE TO SEE PT. NEW ORDERS REVIEWED. HUMALOG 10 UNITS GIVEN SUBCU R ARM. PT IS SITTING ON THE SIDE OF HIS BED.
[2017-10-25 11:27] LABS: ALBUMIN 2.5 g/dL (3.4-5.0); ANION GAP 10.8 mmol/L (8-16); BILIRUBIN - TOTAL 0.59 mg/dL (0.2-1.3); CARBON DIOXIDE 31.5 mmol/L (21.0-32.0); POTASSIUM - SERUM 4.3 mmol/L (3.5-5.1); PROTEIN - SERUM 6.8 g/dL (6.4-8.2)
[2017-10-25 11:28] LABS: CREATININE - SERUM 1.5 mg/dL (0.6-1.3)
--- NOTE | 2017-10-25 11:31 | NUR ---
YAS, PHARMACIST CALLED AND WANTED TO VERIFY THAT MR CANTU'S INSULIN DOSE ORDERED IS CORRECT. INSULIN 70/30 60 UNITS TID 30 MIN PRIOR TO MEALS WAS VERIFIED WITH PT. HE STATES THAT DR COSTELLO AT THE [facility] IN HAS HIM ON THIS. PT STATES THAT HE HAS BEEN ON 90 TID BEFORE. CALLED TO CONFIRM WITH YAS.
[2017-10-25 12:45] VITALS: BP 143/54
--- NOTE | 2017-10-25 17:26 | NUR ---
OT NOTE: PT COMPLETED BED MOB AND COMPLETED SIT TO STANDS. THANK YOU, RAUDEL SAAVEDRA
--- NOTE | 2017-10-25 18:45 | NUR ---
PT IS RESTING IN BED. AT BEDSIDE. HE OFFERS NO COMPLAINTS. BED IS LOW, SIDE RAILS UP X 2 AND CALL LIGHT IN REACH.
--- NOTE | 2017-10-25 19:40 | NUR ---
RECIEVED SHIFT REPORT. PT IS LYING IN BED. ALERT AND ORIENTED AND ABLE TO VERBALIZE NEEDS. IV IS PATENT AND FLUIDS RUNNING PER ORDER. O2 @ 3 PER NASAL CANNULA. PT IS AMBULATORY BUT WAS INSTRUCTED TO CALL FOR ANY ASSISTANCE NEEDED. PT DENIES ANY PAIN AT THIS TIME. NO NEEDS ARE VERBALIZED AT THIS TIME. WILL CONTINUE TO MONITOR. SIDE RAILS ARE UP X 2. BED IS IN LOWEST POSITION. CALL LIGHT IS WITHIN REACH.
--- NOTE | 2017-10-25 20:41 | NUR ---
SHIFT ASSESSMENT COMPLETED. NIGHT MEDS GIVEN WITH NO PROBLEMS. PT RECIEVED 6 UNITS INSULIN PER SLIDING SCALE FOR FFTL=681. NO NEEDS ARE VOICED. WILL MONITOR. SIDE RAILS X 2. BED LOW. CALL LIGHT IN REACH.
[2017-10-25 20:44] VITALS: BP 106/45
[2017-10-26 00:27] VITALS: BP 127/44
[2017-10-26 04:59] VITALS: BP 127/52
[2017-10-26 06:18] LABS: BASOPHILS 0.1 % (0-2); EOSINOPHILS 0.1 % (0-7); HEMATOCRIT 38.1 % (42.0-54.0); HEMOGLOBIN 11.7 g/dL (13.5-17.5); IMMATURE GRANULOCYTES 1.7 % (0-5); LYMPHOCYTES 6.8 % (15-50); MCH 29.2 pg (26.0-34.0); MCHC 30.7 g/dL (31.0-37.0); MEAN PLATELET VOLUME 9.6 fL (7.4-10.4); MONOCYTES 3.9 % (2-11); NEUTROPHILS 87.4 % (40-80); PLATELET COUNT 221 10x3/uL (130-400); RBC 4.01 10x6/uL (4.20-6.10); RDW 15.5 % (11.5-14.5)
[2017-10-26 06:23] LABS: WBC 12.7 10x3/uL (4.8-10.8)
[2017-10-26 06:56] LABS: ALBUMIN 2.3 g/dL (3.4-5.0); ANION GAP 10.1 mmol/L (8-16); BILIRUBIN - TOTAL 0.33 mg/dL (0.2-1.3); CALCIUM 8.6 mg/dL (8.5-10.1); CARBON DIOXIDE 32.5 mmol/L (21.0-32.0); CREATININE - SERUM 1.6 mg/dL (0.6-1.3); POTASSIUM - SERUM 4.6 mmol/L (3.5-5.1); PROTEIN - SERUM 6.3 g/dL (6.4-8.2)
--- NOTE | 2017-10-26 07:50 | NUR ---
PT IS RECEIVED THIS AM SITTING UP ON SIDE OF BED. HIS BS WAS 443. 60 UNITS OF 70/30 INSULIN GIVEN. HE RECEIVED 10 UNITS OF HUMALOG THIS AM AT 0630 FOR A BS OF 400. I WILL RECHECK HIS BS AT 0900. GEN- AWAKE AND ALERT- LUNGS WITH TIGHTNESS AND WHEEZING BILATERALLY. HE JUST STARTED BREATHING TREATMENT. HEART- RRR. ABD- OBESE, BS +. EXT- WITH 2-3 + PITTING EDEMA LE. R WORSE THAN LEFT. DISCOLORATION ALSO NOTED BILATERAL EXT. IV IS PATENT R HAND WITH NS AT KVO. PT IS UP AD KORY TO BATHROOM.
[2017-10-26 08:25] VITALS: BP 126/58
--- NOTE | 2017-10-26 10:35 | NUR ---
OT NOTE: PT ABLE TO AMB INDEP TO BATHROOM; ABLE TO PERFORM ALL TOIILET HYGIENE AND SINK HYGIENE WITHOUT ASSIST; STATIC SITTING ON EDGE OF BED TO PERFORM B UE STRENTHENING EXS; DYNAMIC STANDING BALANCE ACT WITH SPV . PT REPORTS THAT HE FEELS BETTER. DARCI AMOR, OTR/L
--- NOTE | 2017-10-26 11:30 | NUR ---
PTS BS WAS 399. RECEIVED 16 UNITS OF HUMALOG INSULIN AND THEN 70/30 60 UNITS SUB CU ALSO. HE IS STILL WITH O2 VIA NC @ 3 LITERS. HE OFFERS NO COMPLAINTS.
--- NOTE | 2017-10-26 11:38 | CN ---
PATIENT NAME:BRIDGER KAPADIA MEDICAL RECORD: [id number] : 45 LOCATION:[facility] ADMIT DATE: 10/24/17 ACCOUNT: [id number] CONSULTING PHYSICIAN: TORSTEN VARGAS MD REFERRING PHYSICIAN: VLADIMIR MUHAMMAD MD DATE OF CONSULTATION: 10/25/2017 CONSULT REQUESTING PHYSICIAN: Mayank Quijano MD REASON FOR CONSULTATION: Acute exacerbation of chronic obstructive pulmonary disease and shortness of breath. HISTORY OF PRESENT ILLNESS: Mr. Kapadia is a 72-year-old gentleman, well known to me. According to the patient, he has worsening shortness of breath for the last few days. He has orthopnea, he has a PND. He is coughing very little sputum production. Denies any fever or chill. No night sweats. He has also swelling of the lower extremities. REVIEW OF SYSTEMS: Mainly in the history of present illness. PAST MEDICAL HISTORY: 1. COPD. 2. Obstructive sleep apnea. He is using his CPAP machine. 3. Diabetes mellitus. 4. Gastroesophageal reflux disease. 5. Chronic lower extremity edema. 6. Chronic hypoxic respiratory failure. 7. Diabetes mellitus type 2. PAST SURGICAL HISTORY: He has knee and back surgery. ALLERGIES: There are no known drug allergies. MEDICATIONS: Methylprednisolone IV, Demadex, albuterol and ipratropium nebulizer, Brovana and budesonide nebulizer, other medication is reviewed. PERSONAL AND SOCIAL HISTORY: The patient is . He lives with his . He has quit smoking 3 months ago. He is a nondrinker. FAMILY HISTORY: Noncontributory. PHYSICAL EXAMINATION: GENERAL: Now, the patient is lying comfortably. He is not in acute distress. VITAL SIGNS: Blood pressure is 143/54, pulse is 97, respiration is 18, temperature 98.4, and SPO2 is 91% on 3 liter nasal cannula. HEENT: Conjunctivae are pink. Sclerae nonicteric. NECK: Supple, no JVD. CHEST: Excursion is minimal on both sides. There are bibasilar crackles, right more than the left. HEART: Rhythm regular, normal sound, no murmur. The heart sounds are distant. ABDOMEN: Soft, bowel sounds present. No hepatosplenomegaly. RECTAL: Deferred. EXTREMITIES: No cyanosis, no clubbing. There are 2+ pedal edema. SKIN: Warm, normal turgor. CENTRAL NERVOUS SYSTEM: The patient is awake and alert. There are no obvious CONSULT REPORT [id number] BRIDGER KAPADIA cranial nerve abnormality. The gait is normal. IMAGING: Chest radiograph, there is eventration of the left hemidiaphragm. There is a small right-sided pleural effusion. OTHER LABORATORY DATA: CBC: The WBC 8.6, hemoglobin 12.4, hematocrit 39.4, the platelet count is 204. Chemistry: Sodium 136, potassium 4.3, glucose 441. Creatinine 1.5. IMPRESSION: 1. Acute exacerbation of chronic obstructive pulmonary disease, [id number]-[id number] hypoxic respiratory failure, acute flare of congestive heart failure. 2. Right pleural effusion secondary to congestive heart failure. 3. Obstructive sleep apnea. 4. Gastroesophageal reflux disease. 5. Morbid obesity. RECOMMENDATION: 1. Methylprednisolone IV. Start him on doxycycline IV. Continue torsemide b.i.d., albuterol and ipratropium nebulizer, Brovana and budesonide nebulizer. 2. Antitussive. 3. Follow up labs and chest radiograph. Dr. Quijano, thank you for involving me in the care of Ms. Kapadia. TRANSINT:[id number] Voice Confirmation ID: [id number] DOCUMENT ID: [id number] TORSTEN VARGAS MD at 1138 CC: MAYANK QUIJANO MD [id number] DICTATION DATE: 10/25/17 1450 UTILITY TELLER: 10/25/17 1608 ADM IN [place] [address] [place] [address]
[2017-10-26 12:00] VITALS: BP 109/49
[2017-10-26] MEDS ORDERED: IPRAT-ALBUT 0.5-3 ML UPD ×2 (13:25)
[2017-10-26] MEDS ORDERED: LOVENOX30 MG/0.3 SC (13:25)
--- NOTE | 2017-10-26 13:25 | NUR ---
REHAB REPS ARE HERE TO DISCUSS ADMISSION TO REHAB TODAY. HE AND HIS ARE IN AGREEMENT.
[2017-10-26] MEDS ORDERED: DEMADEX20 MG PO (13:26)
[2017-10-26] MEDS ORDERED: MUCINEX600 MG PO (13:26)
[2017-10-26] MEDS ORDERED: HUMALOG 30100 UNITS/ SC (13:26)
[2017-10-26] MEDS ORDERED: VIBRAMYCIN 100100 M1 IV (13:27)
[2017-10-26] MEDS ORDERED: SOLU-MEDRO40 MG/1 M1 IV (13:27)
--- NOTE | 2017-10-26 13:35 | NUR ---
PT WANTS A SHOWER. COVERED AND UNHOOKED IV. PT GETTING IN SHOWER. IS IN ROOM.
--- NOTE | 2017-10-26 14:08 | NUR ---
Rehab Prescreening Consult recieved and the patient was visited. He meets criteria and feels he will benefit from the therapy prior to going home. He meets criteria and will be accepted today. Katty Maciel RN Clinical Liaison, Rehab
--- NOTE | 2017-10-26 16:42 | NUR ---
PT IS DISCHARGED TO [facility]. HE IS DOING WELL. TRANSPORTED BY WHEELCHAIR. IS WITH HIM.
== END 2017-10-26 16:43 | disposition home or self-care (01) | DRG 193 ==
LOC: D.MS 17:15
PROVIDERS: Family Medicine; ADMIT Emergency Medicine
DX: J18.1 Lobar pneumonia, unspecified organism (principal); J96.21 Acute and chronic respiratory failure with hypoxia; I50.31 Acute diastolic (congestive) heart failure; J44.1 Chronic obstructive pulmonary disease with (acute) exacerbation; G47.33 Obstructive sleep apnea (adult) (pediatric); E11.9 Type 2 diabetes mellitus without complications; Z79.4 Long term (current) use of insulin; K21.9 Gastro-esophageal reflux disease without esophagitis; E66.01 Morbid (severe) obesity due to excess calories; Z68.38 Body mass index [BMI] 38.0-38.9, adult; Z87.891 Personal history of nicotine dependence; I08.1 Rheumatic disorders of both mitral and tricuspid valves

== ENCOUNTER 2017-10-26 16:54 | Inpatient (IN) | payer MEDICARE, BC ==
[~2017-10-26] VITALS: Ht 175.3 cm; Wt 117.5 kg
[~2017-10-26 16:54] MED LIST changes: +DEMADEX20 MG PO; +HUMALOG 30100 UNITS/ SC; +LOVENOX30 MG/0.3 SC; +MUCINEX600 MG PO; +SOLU-MEDRO40 MG/1 M1 IV; +VIBRAMYCIN 100100 M1 IV
[2017-10-26 18:20] VITALS: BP 133/53; BMI 38.3
--- NOTE | 2017-10-26 19:15 | NUR ---
BEDSIDE SHIFT REPORT COMPLETED. DENIES NEEDS. SAYS HE WANTS TO SIGN A BED ALARM WAIVER TO BE UP TO BR AD KORY HE WAS UPSTAIRS. EXPLAINED THAT THE WAIVER IS A RELIEF FROM LIABILITY IF HE GETS UP AND HAS A FALL. SAYS HE UNDERSTANDS. REMINDED HIM THAT WHILE HIS IV DOXYCYCLINE IS RUNNING HE MUST CALL FOR ASSIST SO NOT TO PULL OUT HIS IV CATHETER. SAYS HE UNDERSTANDS THIS ALSO, AND WILL CALL IF HE NEEDS TO GET UP WHILE IT IS RUNNING.
[2017-10-26 21:50] VITALS: BP 130/63
--- NOTE | 2017-10-26 21:50 | NUR ---
ASSESSMENT AND HS MEDS COMPLETE. PATIENT EARLIER SIGNED BED ALARM WAIVER. DENIES NEEDS AT THIS TIME.
--- NOTE | 2017-10-27 00:15 | NUR ---
FOUND PATIENT SITTING UP ON BEDSIDE LEANING ON HIS LEFT ARM ON THE BEDSIDE TBLE, ASLEEP. AWOKE PATIENT AND EXPLAINED THAT THIS IS AN UNSAFE POSITION TO BE IN AND ASSISTED HIM INTO BED. SET UP HIS CPAP WITH 2L O2 PLUMBED IN. PATIENT DONNED CPAP NASAL MASK AND CPAP THERAPY WAS INITIATED. HOB UP 30 DEGREES.
--- NOTE | 2017-10-27 01:55 | NUR ---
IN BED, EYES CLOSED. CONTINUES ON CPAP WITH 2L O2 FLOW.
--- NOTE | 2017-10-27 04:45 | NUR ---
PATIENT AWAKE. SITTING ON EDGE OF BED AFTER [place] [facility]IENT DONNED HIS CPAP MASK AND GOT BACK IN BED WHILE I WAS AT BEDSIDE. DENIES CURRENT NEEDS.
--- NOTE | 2017-10-27 05:30 | NUR ---
AWOKE PATIENT AND CHANGED HIM FROM CPAP WITH O2 TO NASAL CANNULA WITH 2L O2. GAVE HIM SCHEDULED PO MEDS. DELIVERED SCHEDULED SOLU-MEDROL 80MG SLOW IVP. FLUSHED S/L AND STARTED IVPB DOXYCYCLINE 100MG IN 250ML TO RUN OVER 2 HRS PER PUMP VIA RIGHT HAND S/L.
[2017-10-27 06:11] LABS: BASOPHILS 0.1 % (0-2); EOSINOPHILS 0 % (0-7); HEMATOCRIT 38.2 % (42.0-54.0); HEMOGLOBIN 12.1 g/dL (13.5-17.5); IMMATURE GRANULOCYTES 1.5 % (0-5); LYMPHOCYTES 6.2 % (15-50); MCH 29.6 pg (26.0-34.0); MCHC 31.7 g/dL (31.0-37.0); MCV 93.4 fL (80.0-100.0); MEAN PLATELET VOLUME 9.5 fL (7.4-10.4); MONOCYTES 4.8 % (2-11); NEUTROPHILS 87.4 % (40-80); PLATELET COUNT 214 10x3/uL (130-400); RBC 4.09 10x6/uL (4.20-6.10); RDW 15.8 % (11.5-14.5); WBC 13.5 10x3/uL (4.8-10.8)
[2017-10-27 06:46] LABS: ANION GAP 7.7 mmol/L (8-16); CALCIUM 8.9 mg/dL (8.5-10.1); CREATININE - SERUM 1.4 mg/dL (0.6-1.3); POTASSIUM - SERUM 4.7 mmol/L (3.5-5.1)
[2017-10-27 08:16] VITALS: BP 135/61
--- NOTE | 2017-10-27 08:30 | NUR ---
PT AM MEDS ADMINISTERED. PT IS UP AD KORY. BED ALARM WAIVER ON FILE. PT DENIES NEEDS AT THIS TIME. WCSANDI.
[2017-10-27 12:36] VITALS: Ht 175.3 cm; Wt 117.5 kg
--- NOTE | 2017-10-27 17:41 | NUR ---
PT SITTING UP IN CHAIR EATING DINNER, DENIES NEEDS. WCTM.
[2017-10-27 19:30] VITALS: BP 132/59
--- NOTE | 2017-10-27 19:30 | NUR ---
RECIEVED UP IN BED WITH EYES OPEN AND TV ON. VIBRAMYCIN RUNNING VIA IV AT THIS TIME. IV SITE HAS NO REDNESS OR SWELLING WITH DRESSING INTACT. HOB ELEVATED AND O2@3 LITERS PER N/C. CALL LIGHT AND OVERBED TABLE IN REACH.
--- NOTE | 2017-10-27 21:15 | NUR ---
RESTING IN BED WITH EYES CLOSED. NO S/S OF DISTRESS OBSERVED. HARD TO AROUSE. SOLUMEDROL GIVEN IV PUSH PER ORDERS. IV FLUSHED PRE AND POST MEDICATION. O2@3 LITERS PER N/C. AMBULATED TO B/R [facility] ASSIST. WAVER SIGNED. CALL LIGHT AND OVERBED TABLE IN REACH.
--- NOTE | 2017-10-28 00:04 | NUR ---
RESTING IN BED WITH EYES CLOSED. HOB ELEVATED WITH O2@ 3 LITERS PER N/C. HOB ELEVATED TO 30 DEGREES. NO S/S OF DISTRESS OBSERBED. CALL LIGHT AND OVERBED TABLE IN REACH.
--- NOTE | 2017-10-28 04:45 | NUR ---
RESTING IN BED WITH EYES CLSOED. N S/S OF DISTRESS OBSERVED. O2@ 3 LITERS PER N/C. RESP EVEN AND UNLABORED. HOB ELEVATED AND CALL LIGHT IN REACH.
[2017-10-28 06:17] LABS: HEMOGLOBIN 12.8 g/dL (13.5-17.5); LYMPHOCYTES 6.9 % (15-50); MCH 29.2 pg (26.0-34.0); MEAN PLATELET VOLUME 9.1 fL (7.4-10.4); NEUTROPHILS 89.4 % (40-80); RBC 4.38 10x6/uL (4.20-6.10); RDW 15.5 % (11.5-14.5); WBC 12.3 10x3/uL (4.8-10.8)
[2017-10-28 06:25] LABS: MCV 91.3 fL (80.0-100.0); PLATELET COUNT 261 10x3/uL (130-400)
[2017-10-28 06:43] LABS: ANION GAP 8.9 mmol/L (8-16); CALCIUM 9.3 mg/dL (8.5-10.1); CARBON DIOXIDE 39.1 mmol/L (21.0-32.0); CREATININE - SERUM 1.7 mg/dL (0.6-1.3)
--- NOTE | 2017-10-28 08:08 | NUR ---
PT SITTING ON SIDE OF BED EATING BREAKFAST TOLERATING WELL CALL LIGHT IN REACH WILL MONITER
[2017-10-28 09:01] VITALS: BP 137/80
--- NOTE | 2017-10-28 10:57 | NUR ---
PT UP IN WHEELCHAIR IN ROOM TOELRATING WELL WILL MONITER
--- NOTE | 2017-10-28 13:52 | NUR ---
PATIENT ADMITTED TO REHAB FROM ACUTE FLOOR. DR. MUHAMMAD IS HIS PCP. DME AT HOME: BEDSIDE COMMODE, CANE, SHOWER CHAIR, WHEELCHAIR, WALKER, NEBULIZER AND O2. WILL CONTINUE TO FOLLOW WITH PATIENT AND WILL ASSIST WITH DISCHARGE PLANS.
--- NOTE | 2017-10-28 16:23 | NUR ---
Pt has 2 open areas on his right ritter. He states that he hit the steps on his camper a couple weeks ago. Right ritter measures 3.5cm x 1.5cm with red wound bed. Right lower leg measures 1.5cm x 1.5cm. Recommend cleansing with wound casing cleaner/dry well and cover with mepilex lite border. Will continue monitoring.
--- NOTE | 2017-10-28 19:09 | NUR ---
PT. SITTING UP IN CHAIR WATCHING TV WITH BREATHING TX GOING. NO VOICED NEEDS AND HE HAS HIS CALL LIGHT WITHIN REACH.
--- NOTE | 2017-10-28 19:09 | NUR ---
PT. IN BED WITH HOB UP FOR COMFORT AND IS WATCHING TV. MULTIPLE FAMILY MEMBERS PRESENT. NO VOICED NEEDS AND HIS CALL LIGHT IS WITHIN REACH.
--- NOTE | 2017-10-28 19:32 | NUR ---
PT IS SITTING IN A RECLINER IN HIS ROOM WATCHING TV. ALERT AND ORIENTED X 3. DENIES ANY PAIN OR DISCOMFORT AT THIS TIME. VSS. O2 IS ON @ 3LPM PER NC. NO SOB NOTED. SR'S ARE UP X 2 IN BED. CALL LIGHT AND BEDSIDE TABLE ARE WITHIN EASY REACH.
[2017-10-28 20:58] VITALS: BP 119/59
--- NOTE | 2017-10-28 23:25 | NUR ---
PT CAME TO NURSES STATION STATING HE WAS SUPPOSED TO GET A SANDWICH FOR HIS HS SNACK AND DID NOT RECIEVE IT. SANDWICH TRAY PROVIDED.
--- NOTE | 2017-10-29 03:38 | NUR ---
PT RESTING IN BED WITH EYES CLOSED.
[2017-10-29 08:00] VITALS: BP 136/99
--- NOTE | 2017-10-29 08:00 | NUR ---
SHIFT ASSMT COMPLETED.
--- NOTE | 2017-10-29 12:00 | NUR ---
OUT ON PASS WITH FAMILY.
--- NOTE | 2017-10-29 16:20 | NUR ---
BACK FROM PASS.DENIES NEEDS.
[2017-10-29 19:39] VITALS: BP 138/84
--- NOTE | 2017-10-29 20:01 | NUR ---
PT. SITTING UP IN CHAIR AND IS WATCHING FOOTBALL GAME ON TV. O2 ON VIA N/C WITHOUT ANY S/S DISTRESS OBSERVED. CALL LIGHT WITHIN REACH.
--- NOTE | 2017-10-29 21:19 | NUR ---
PT IS RESTING IN BED WATCHING TV. ALERT AND ORIENTED X . DENIES ACUTE DISCOMFORT AT THIS TIME. VSS. HS MEDS GIVEN. O2 IS ON @ 2LPM PER NC. NO SOB NOTED AT THIS TIME. SALINE LOCK PATENT TO [facility]. FLUSHES EASILY WITH NS. NO REDNESS OR EDEMA NOTED AT THE INSERTION SITE. SR'S ARE UP X 2 IN BED. CALL LIGHT AND BEDSIDE TABLE ARE WITHIN EASY REACH. SIGNED BED ALARM WAIVER IN CHART.
--- NOTE | 2017-10-29 23:47 | NUR ---
RESTING IN BED WITH EYES OPEN. NO NEEDS VOICED.
--- NOTE | 2017-10-30 03:01 | NUR ---
RESTING IN BED WITH EYES CLOSED.
--- NOTE | 2017-10-30 05:22 | NUR ---
RESTING IN BED WITH EYES CLOSED.
--- NOTE | 2017-10-30 08:00 | NUR ---
SHIFT ASSMT COMPLETED.DENIES NEEDS.CL IN REACH.BREAKFAST GIVEN.
[2017-10-30 08:30] VITALS: BP 115/70
--- NOTE | 2017-10-30 12:00 | NUR ---
LUNCH GIVEN.SITTING UP IN CHAIR.
--- NOTE | 2017-10-30 16:00 | NUR ---
RESTING QUIETLY. AT BEDSIDE.
--- NOTE | 2017-10-30 19:23 | NUR ---
PT IS SITTING IN HIS WC WATCHING TV. ALERT AND ORIENTED X 3. DENIES ACUTE PAIN OR DISCOMFORT. O2 IS ON @ 2LPM PER NC. NO SOB NOTED. LEFT FOREARM SALINE LOCK NOTED. CALL LIGHT AND BEDSIDE TABLE ARE WITHIN EASY REACH.
--- NOTE | 2017-10-30 19:47 | NUR ---
PT. IN CHAIR IN ROOM AND IS WATCHING TV WITH REMOTE CONTROL/CALL LIGHT IN HAND. O2 ON VIA N/C WITHOUT ANY OBSERVED DISTRESS.
[2017-10-30 21:19] VITALS: BP 121/74
--- NOTE | 2017-10-30 22:59 | NUR ---
PT SITTING UP IN WC IN HIS ROOM WATCHING TV, AND EATING A SANDWICH. NO ACUTE DISTRESS NOTED.
--- NOTE | 2017-10-31 01:00 | NUR ---
ASSUMED CARE FROM ELICIA GARDNER. PT. IN BED WITH HOB UP FOR COMFORT AND WATCHING TV. NO VOICED NEEDS AND HIS CALL LIGHT IS WITHIN REACH.
--- NOTE | 2017-10-31 03:15 | NUR ---
PT. IN BED WITH HOB/FOB UP FOR COMFORT. INSTRUCTED PT. NOT TO ELEVATE ENTIRE BED BECAUSE IF HE ACCIDENTLY LEFT IT UP AND HE THEN TRIED TO GET OOB HE COULD FALL. LOWERED BED ALL THE WAY DOWN AND REINSTRUCTED PT. ON THE HOB/FOB CONTROLS HE WAS LOOKING TO ADJUST BED WITH. O2 ON VIA N/C WITHOUT ANY S/S RESP. DISTRESS OBSERVED AND HIS CALL LIGHT IS WITHIN REACH.
[2017-10-31 04:55] LABS: BASOPHILS 0.2 % (0-2); EOSINOPHILS 0.1 % (0-7); HEMATOCRIT 45.3 % (42.0-54.0); HEMOGLOBIN 13.9 g/dL (13.5-17.5); IMMATURE GRANULOCYTES 4.8 % (0-5); LYMPHOCYTES 4.8 % (15-50); MCH 29.3 pg (26.0-34.0); MCHC 30.7 g/dL (31.0-37.0); MCV 95.4 fL (80.0-100.0); MEAN PLATELET VOLUME 9.9 fL (7.4-10.4); MONOCYTES 6.8 % (2-11); NEUTROPHILS 83.3 % (40-80); PLATELET COUNT 302 10x3/uL (130-400); RBC 4.75 10x6/uL (4.20-6.10); RDW 15.6 % (11.5-14.5); WBC 14.4 10x3/uL (4.8-10.8)
[2017-10-31 05:12] LABS: ANION GAP 3.1 mmol/L (8-16); CALCIUM 8.8 mg/dL (8.5-10.1); CREATININE - SERUM 1.5 mg/dL (0.6-1.3); POTASSIUM - SERUM 4.4 mmol/L (3.5-5.1)
[2017-10-31 05:27] LABS: CARBON DIOXIDE 45.3 mmol/L (21.0-32.0)
[2017-10-31 08:00] VITALS: BP 111/52
--- NOTE | 2017-10-31 08:02 | NUR ---
SITTING UP IN CHAIR IN HIS ROOM. DENIES INCREASED SOB AT REST. IS WEARING OYGEN AT 2LNC. HAS X2 BANDAGES TO RLE. HE WALKS BY HIMSELF.
--- NOTE | 2017-10-31 12:52 | NUR ---
SITTING UP IN RECLINER IN ROOM WATCHING TV. DENIES INCREASED PAIN OR SOB. WALKS AROUND IN ROOM
--- NOTE | 2017-10-31 19:48 | NUR ---
PT SITTING IN WC IN HIS ROOM WATCHING TV AND DOING A UPDRAFT TX. ALERT AND ORIENTED X 3. DENIES ACUTE DISCOMFORT AT THIS TIME. VSS. NO NEEDS VOICED.
[2017-10-31 21:35] VITALS: BP 134/72
--- NOTE | 2017-10-31 22:12 | NUR ---
PT RESTING IN RECLINER WATCHING TV. NO NEEDS VOICED.
--- NOTE | 2017-10-31 23:38 | NUR ---
RESTINGIN BED WITH EYES CLOSED AND TV ON. NO S/S OF DISTRESS OBSERVED. O2@2 LITERS PER N/C. REFUSES TO WEAR CPAP. CALL LIGHT PAUL REACH.
--- NOTE | 2017-11-01 04:17 | NUR ---
PT RESTING QUIETLY IN BED WITH EYES CLOSED.
--- NOTE | 2017-11-01 06:05 | NUR ---
PT UP TO BATHROOM WITH SBA. NO NEEDS VOICED.
[2017-11-01 08:00] VITALS: BP 127/61
--- NOTE | 2017-11-01 08:01 | NUR ---
EATING BREAKFAST IN ROOM. DENIES NEEDS. CALL LIGHT IN REACH
[2017-11-01] MEDS ORDERED: MEDROL DOSE PACK4 MG PO (10:08)
--- NOTE | 2017-11-01 10:12 | RHP ---
PATIENT: BRIDGER CANTU MEDICAL RECORD: [id number] ACCOUNT: [id number] LOCATION:[id number] : 45 ADMISSION DATE: 10/26/17 REHABILITATION HISTORY AND PHYSICAL EXAMINATION POST ADMISSION PHYSICIAN EXAMINATION POST-ADMISSION PHYSICAL EXAMINATION AND HISTORY AND PHYSICAL ADMITTING DIAGNOSIS: Acute exacerbation of chronic obstructive pulmonary disease. HISTORY OF PRESENT ILLNESS: The patient is a 72-year-old gentleman admitted to inpatient rehab with acute exacerbation of COPD. He was admitted to the hospital on 10/24 with a complaint of progressing worsening dyspnea, cough, and scant sputum production associated with fatigue and weakness over the previous few days prior to admission. He was just admitted a couple of weeks ago with similar symptoms. On exam, he has orthopnea and also paroxysmal nocturnal dyspnea. He is coughing, very little sputum, though production is noted with this. He has also had some mild distress, exertional problems with shortness of breath. There are some bibasilar crackles noted, right more than left. He has had some swelling in the bilateral lower extremities. Chest x-ray showed persistent bibasilar airspace disease consistent with atelectasis and trace right pleural effusion. Past medical history includes diabetes, COPD, obstructive sleep apnea, and chronic hypoxic respiratory failure. He was admitted with pulmonary consult. He was placed on methylprednisolone and doxycycline and continued on his torsemide, albuterol, ipratropium bromide, Brovana and budesonide and antitussives. Previously, he lived with his and was independent with ADLs and mobility. He does wear CPAP at night, but has not been too dependent until recently. He is now on 3.5 liters continuously. Currently, he is byjlupki-ro-mmq assist for ADLs and mobility. He continues to have problems lying flat secondary to shortness of breath. He is more dyspneic with any type of exertion, tires easily, and has generalized weakness. He wants to be able to return home at his prior level of functioning or better if possible. Comorbidities in this patient include CHF, pleural effusion, COPD, diabetes, hypoxia, pneumonia, fatigue, weakness, orthopnea, productive cough, osteoporosis, home O2, chronic edema, and gastroesophageal reflux disease. PAST MEDICAL HISTORY: Significant for COPD, obstructive sleep apnea, diabetes, gastroesophageal reflux disease, chronic lower extremity edema, chronic hypoxic respiratory failure, and diabetes. PAST SURGICAL HISTORY: Includes knee and back surgery. ALLERGIES: No known drug allergies. CURRENT MEDICATIONS: Include Protonix 40 mg daily. He is on lisinopril 2.5 mg daily, Floranex 460 mg daily, insulin NPH 70/30 at 60 units t.i.d. before every meal. He is on hydrochlorothiazide 12.5 mg daily, Proscar 5 mg daily, fenofibrate 145 mg daily, Lovenox 30 mg daily subcutaneous, Uroxatral 10 mg at bedtime. He is on a replacement protocol for electrolytes. He is on Demadex 20 mg b.i.d., Zocor 40 mg at bedtime, Requip 1 mg at bedtime, Solu-Medrol 80 mg every 8 hours, DuoNeb updrafts as needed. He is on intermediate resistance HISTORY AND PHYSICAL [id number] BRIDGER CANTU sliding scale of insulin before every meal and at bedtime with Humalog. Mucinex 1200 mg b.i.d., Neurontin 300 mg t.i.d., doxycycline IV at this time, Pulmicort 0.5 mg b.i.d., Tessalon Perles 200 mg t.i.d., Brovana 15 mcg b.i.d. He is on glucose replacement protocol as needed and polyethylene glycol 17 grams in 8 ounces of water daily. HABITS: No current alcohol or tobacco use. FAMILY HISTORY: Noncontributory. SOCIAL HISTORY: As above. The patient hopes to return home with his . REVIEW OF SYSTEMS: GENERAL: Does complain of some weakness, especially with exertion. HEENT: Denies cold, cough, or congestion at this time. CARDIOVASCULAR: Denies any chest pain. LUNGS: Does complain of shortness of breath with activity. PHYSICAL EXAMINATION: VITAL SIGNS: Stable. He is afebrile. GENERAL: An obese gentleman, in no acute distress, alert upon exam. HEENT: Normocephalic and atraumatic. Mucosa moist. NECK: Supple. No lymphadenopathy. LUNGS: Clear in the apices, but has diffuse rhonchi throughout the rest of the lung espinosa. CARDIOVASCULAR: Regular rate and rhythm. ABDOMEN: Benign. EXTREMITIES: No clubbing, cyanosis or edema. NEUROLOGIC: Intact. LABORATORY DATA: His white count was 13.5 secondary to the Solu-Medrol. His H&H of 12 and 38. Platelet count was noted to be 214. Sodium 139, potassium 4.7, BUN and creatinine of 56 and 1.4, and blood sugar was noted to be 199. ASSESSMENT: This is a 72-year-old gentleman admitted to the rehab with a working diagnosis of acute exacerbation of chronic obstructive pulmonary disease. The patient has potential to make improvement. We will institute the following multidisciplinary therapies including, but not limited to, physical, occupational, respiratory, speech, nutritional services, prosthetics and orthotics. Given his complex condition and risk for more complications, rehabilitation services cannot be provided at a low level of care such as a care home facility. PLAN: 1. Admit to [facility] rehab for intensive inpatient therapy to include the following disciplines: A. Physical therapy to improve gait, all transfer skills and bed mobility to a modified independent level. B. Occupational therapy to improve activities of daily living to a modified independent level. C. Case management to assist with discharge planning and placement options. D. Nutrition to assist with nutritional needs. E. Rehabilitation nursing to assist in monitoring the patient's underlying medical conditions and to assist with any type of bowel or bladder management. 2. The patient's current medication and medical care will be continued. HISTORY AND PHYSICAL [id number] BRIDGER CANTU 3. The patient will be placed on standard fall precautions. 4. The patient's estimated length of stay is approximately 7-10 days. 5. We will continue to work with tapering the Solu-Medrol and his breathing treatments and hopefully get him home with his soon. TRANSINT:[id number] Voice Confirmation ID: [id number] DOCUMENT ID: [id number] RAJI notes whether there has been none or any medical/functional change since admission: - No change since prescreen. RAJI attests patient continues to be appropriate for IRF: - Continues to be appropriate. VLADIMIR MUHAMMAD MD at 1012 CC: [id number] DICTATION DATE: 10/27/17 0847 HUMAN RESOURCE ANALYST: 10/27/17 1132 ADM IN [facility] [address] [place] [address]
--- NOTE | 2017-11-01 13:33 | NUR ---
PATIENT DISCHARGING HOME TODAY WITH FAMILY. [facility] WILL PROVIDE THERAPY AT HOME. NO NEW DME NEEDED AT THIS TIME.DR. MUHAMMAD 11/11/17 # 11:15. PATIENT CHOICE FORM FOR HOME HEALTH AND [facility] FORM EXPLAINED, SIGNED AND FILED IN CHART. ORDERS HAVE BEEN FAXED TO [facility] AND TO CARE CORDINATOR AT DR. MUHAMMAD OFFICE WITH CONFORMATION RECIEVED
--- NOTE | 2017-11-01 13:46 | NUR ---
[facility] GAIN FORM FAXED TO DR. MUHAMMAD CARE CORDINATOR.
--- NOTE | 2017-11-01 14:00 | NUR ---
DC IV TO LEFT FOREARM TIP INTACT PRESSURE AND BAINDAID APPLYED
--- NOTE | 2017-11-01 14:45 | NUR ---
PT DISCHARGED TO HOME VIA WHEELCHAIR TO HOME WITH DISCHARGE MEDS AND DISCHARGE SUMMARY REVIEWED WITH PT ALL MEDS CALLED TO [facility] IN [place]
== END 2017-11-01 14:56 | disposition home health service (06) | DRG 190 ==
LOC: D.REHAB 16:54
PROVIDERS: ADMIT Emergency Medicine
DX: J44.1 Chronic obstructive pulmonary disease with (acute) exacerbation (principal); J18.1 Lobar pneumonia, unspecified organism; J96.11 Chronic respiratory failure with hypoxia; J90 Pleural effusion, not elsewhere classified; G47.33 Obstructive sleep apnea (adult) (pediatric); I50.9 Heart failure, unspecified; R53.83 Other fatigue; R53.1 Weakness; R05 Cough; K21.9 Gastro-esophageal reflux disease without esophagitis; M81.0 Age-related osteoporosis without current pathological fracture; R60.9 Edema, unspecified; E66.01 Morbid (severe) obesity due to excess calories; Z68.38 Body mass index [BMI] 38.0-38.9, adult; E11.65 Type 2 diabetes mellitus with hyperglycemia

== ENCOUNTER 2017-11-18 14:33 | Inpatient (IN) | payer MEDICARE, BC ==
[~2017-11-18] VITALS: Ht 175.3 cm; Wt 118.8 kg
--- NOTE | ~2017-11-18 | CN ---
PATIENT NAME:BRIDGER KAPADIA MEDICAL RECORD: [id number] : 45 LOCATION:[facility] D.2135 ADMIT DATE: 11/18/17 ACCOUNT: [id number] CONSULTING PHYSICIAN: TORSTEN VARGAS MD REFERRING PHYSICIAN: VLADIMIR MUHAMMAD MD DATE OF CONSULTATION: 11/19/2017 CONSULT REQUESTING PHYSICIAN: Mahnaz Tuttle MD REASON FOR CONSULTATION: Acute exacerbation of COPD. HISTORY OF PRESENT ILLNESS: Mr. Kapadia is a 72-year-old gentleman who has a history of severe COPD, chronic hypoxic respiratory failure. He will follow up with his accounting assistant in [place]. He was seen over there 2 days ago. According to the patient, he is coughing, wheezing, shortness of breath with mild exertion. He was given some steroids and diuretics, but the patient was not getting any better. Denies any fever and chill. There are no night sweats. REVIEW OF SYSTEMS: As in history of present illness. PAST MEDICAL HISTORY: 1. COPD of severe degree. 2. Chronic hypoxic respiratory failure. 3. Obstructive sleep apnea. 4. Diabetes mellitus. 5. Gastroesophageal reflux disease. 6. Chronic lower extremity dependent edema. 7. Chronic hypoxic respiratory failure. 8. Diabetes mellitus type 2. PAST SURGICAL HISTORY: He has back surgery. ALLERGIES: There are no known drug allergies. MEDICATIONS: He is on albuterol and ipratropium nebulizers, Levaquin IV, Brovana nebulizer. His other medication is reviewed. He is on Lasix. PERSONAL AND SOCIAL HISTORY: The patient is . He is an ex-smoker. He is a nondrinker. FAMILY HISTORY: Noncontributory. PHYSICAL EXAMINATION: GENERAL: Now, the patient is lying comfortably in bed. He is not in acute distress. VITAL SIGNS: The blood pressure is 121/61, pulse is 98, respirations 24, temperature is 98.4, SpO2 is 92% on 3.5 liters nasal cannula. HEENT: Conjunctivae is pink, sclerae nonicteric. NECK: Supple, no JVD. CHEST: The chest excursion is minimal on both sides. There are wheezes on forceful expiration. HEART: Rhythm regular, normal sound, no murmur. ABDOMEN: Soft. Bowel sounds present. No hepatosplenomegaly. RECTAL: Deferred. EXTREMITIES: No cyanosis, no clubbing. There are 2+ pedal edema. CONSULT REPORT [id number] BRIDGER KAPADIA CENTRAL NERVOUS SYSTEM: The patient is awake and alert. There is no obvious cranial nerve abnormality. The gait was not tested. LABORATORY DATA: CBC: WBC 8.1, hemoglobin 12.6, hematocrit 40.1, the platelet count is 170. Chemistry; sodium 140, potassium 4.9, BUN is 45, creatinine 1.6. IMPRESSION: 1. Acute exacerbation of chronic obstructive pulmonary disease. 2. Kxtis-ch-bbzkgps hypoxic respiratory failure, required 3 liters of oxygen. 3. Tracheobronchitis, there are no pneumonia on the chest radiograph. 4. Obstructive sleep apnea. 5. Gastroesophageal reflux disease. 6. Dependent lower extremity edema. RECOMMENDATION: 1. Continue albuterol/ipratropium nebulizer. Start on Brovana and budesonide nebulizer. 2. We will start methylprednisolone IV. Continue Levaquin and continue Daliresp. 3. Follow up labs and chest radiograph. The patient can use his own CPAP machine. Dr. Tuttle, thank you for involving me in the care of Mr. Kapadia. TRANSINT:[id number] Voice Confirmation ID: [id number] DOCUMENT ID: [id number] TORSTEN VARGAS MD at 1406 CC: [id number] DICTATION DATE: 11/19/17 1324 ENGINEERING DOCUMENTATION SPECIALIST: 11/19/17 1542 ADM IN [place] [id number] [place] [address]
--- NOTE | ~2017-11-18 | DS ---
PATIENT:BRIDGER CANTU :45 MEDICAL RECORD: [id number] DISCHARGE SUMMARY ADMISSION DATE: 11/18/17 DISCHARGE DATE: 11/25/17 This is a discharge dated 11/25/2017 from the inpatient hospital. DISCHARGE DIAGNOSES: 1. Chronic obstructive pulmonary disease exacerbation. 2. Acute kidney injury. 3. Type 2 diabetes with hyperglycemia. 4. Obstructive sleep apnea. 5. Diastolic congestive heart failure. 6. Tricuspid regurgitation. 7. Chronic obstructive pulmonary disease. 8. Gastroesophageal reflux disease. 9. Peripheral neuropathy. 10. Coronary artery disease. 11. Chronic hypoxic respiratory failure. CONSULTS THIS HOSPITALIZATION: 1. Cardiology with Dr. Duong. 2. Pulmonary with Dr. Louis. PROCEDURES THIS HOSPITALIZATION: Echocardiogram on 11/18/2017 with an EF of 55%, mild mitral regurgitation and trivial tricuspid regurgitation. HOSPITAL COURSE: Full H&P is located elsewhere on the chart on this 72-year-old male who was admitted with acute dyspnea. He was found to be in COPD exacerbation. He was started on Levaquin for antibiotic coverage and IV steroids. He was started on IV Lasix for diuresis. Cardiology was consulted. He was seen by Dr. Duong. Echocardiogram was done with findings as listed above. Pulmonology was consulted. He was seen by Dr. Louis. He was on nebulized medications for respiratory support and he was using his home CPAP machine with sleep during this hospital stay. He responded well to diuretics with clinical improvement. Electrolytes were managed by protocol. He continued with supplemental oxygen during this hospital stay. Steroids were tapered. Fingerstick blood sugars were monitored throughout his hospital stay with appropriate adjustment in medications as needed. He was clinically improved and considered stable for discharge on 11/25/2017. DISCHARGE MEDICATIONS: As per discharge medication reconciliation. DISCHARGE DISPOSITION: The patient is discharged home. He will continue his current diet and level of activity. He will be seen by [facility] and follow up with primary care and specialist as directed. At least 30 minutes was spent in this discharge activity. TRANSINT:[id number] Voice Confirmation ID: [id number] DOCUMENT ID: [id number] Dictated By: JESUS BARBER I have interviewed/examined the above patient and agree with these documented findings. DISCHARGE SUMMARY REPORT [id number] BRIDGER CANTU, KAVYA KC at 1459 at 1500 CC: [id number] DICTATION DATE: 12/25/17 182 BATCH AND FURNACE MANAGER: 12/26/17 1127 DIS IN 11/25/17 [facility] [address] [place] [address]
[~2017-11-18 14:33] MED LIST changes: +MEDROL DOSE PACK4 MG PO
[2017-11-18] MEDS ORDERED: COREG6.25 MG PO (16:59)
[2017-11-18 17:00] VITALS: BP 152/48; BMI 37.9
[2017-11-18] MEDS ORDERED: SPIRIVA18 MCG INH (17:00)
[2017-11-18] MEDS ORDERED: ADVAIR 250/501 DISK INH (17:00)
[2017-11-18 17:17] LABS: BASOPHILS 0.1 % (0-2); EOSINOPHILS 3.1 % (0-7); HEMATOCRIT 40.1 % (42.0-54.0); HEMOGLOBIN 12.6 g/dL (13.5-17.5); IMMATURE GRANULOCYTES 1.1 % (0-5); LYMPHOCYTES 15.9 % (15-50); MCH 29.9 pg (26.0-34.0); MCHC 31.4 g/dL (31.0-37.0); MCV 95.2 fL (80.0-100.0); MEAN PLATELET VOLUME 9.7 fL (7.4-10.4); MONOCYTES 7.8 % (2-11); RBC 4.21 10x6/uL (4.20-6.10); RDW 16.4 % (11.5-14.5); WBC 8.1 10x3/uL (4.8-10.8)
[2017-11-18 17:27] LABS: PLATELET COUNT 170 10x3/uL (130-400)
[2017-11-18 17:39] LABS: ANION GAP 8.2 mmol/L (8-16); CARBON DIOXIDE 38.5 mmol/L (21.0-32.0); CREATININE - SERUM 1.6 mg/dL (0.6-1.3); POTASSIUM - SERUM 4.7 mmol/L (3.5-5.1)
[2017-11-18 20:00] VITALS: BP 144/55
[2017-11-19] VITALS: BP 110/43
[2017-11-19 04:00] VITALS: BP 130/55
[2017-11-19 05:57] LABS: BASOPHILS 0.1 % (0-2); EOSINOPHILS 3.1 % (0-7); HEMATOCRIT 37.8 % (42.0-54.0); HEMOGLOBIN 11.8 g/dL (13.5-17.5); IMMATURE GRANULOCYTES 0.9 % (0-5); LYMPHOCYTES 17.3 % (15-50); MCH 29.8 pg (26.0-34.0); MCHC 31.2 g/dL (31.0-37.0); MCV 95.5 fL (80.0-100.0); MEAN PLATELET VOLUME 9.1 fL (7.4-10.4); MONOCYTES 9.3 % (2-11); NEUTROPHILS 69.3 % (40-80); PLATELET COUNT 170 10x3/uL (130-400); RBC 3.96 10x6/uL (4.20-6.10); RDW 16.3 % (11.5-14.5); WBC 7.4 10x3/uL (4.8-10.8)
[2017-11-19 06:15] LABS: CALCIUM 8.9 mg/dL (8.5-10.1); CARBON DIOXIDE 37.9 mmol/L (21.0-32.0); CREATININE - SERUM 1.6 mg/dL (0.6-1.3); POTASSIUM - SERUM 4.9 mmol/L (3.5-5.1)
[2017-11-19 06:40] LABS: HEMOGLOBIN A1C 8.1 % (4.8-6.0)
[2017-11-19 07:45] LABS: APPEARANCE CLEAR (CLEAR); BILIRUBIN NEGATIVE (NEGATIVE); COLOR YELLOW (YELLOW); GLUCOSE NEGATIVE (NEGATIVE); KETONE NEGATIVE (NEGATIVE); NITRITE NEGATIVE (NEGATIVE); PH 5.5 (5.0-6.0); PROTEIN NEGATIVE (NEGATIVE); UROBILINOGEN NORMAL (NORMAL)
[2017-11-19 07:51] VITALS: BP 121/61
[2017-11-19 15:28] VITALS: BP 107/48
[2017-11-19 19:00] VITALS: BP 140/43
[2017-11-20] VITALS: BP 141/50
[2017-11-20 04:00] VITALS: BP 148/66
[2017-11-20 07:35] VITALS: BP 133/60
[2017-11-20 09:16] VITALS: Ht 175.3 cm; Wt 118.8 kg
[2017-11-20 11:55] VITALS: BP 115/54
[2017-11-20 15:05] LABS: BASOPHILS 0.1 % (0-2); EOSINOPHILS 0.2 % (0-7); HEMATOCRIT 37.4 % (42.0-54.0); HEMOGLOBIN 11.8 g/dL (13.5-17.5); LYMPHOCYTES 7.7 % (15-50); MCH 30.1 pg (26.0-34.0); MCHC 31.6 g/dL (31.0-37.0); MCV 95.4 fL (80.0-100.0); MEAN PLATELET VOLUME 9.6 fL (7.4-10.4); MONOCYTES 4.7 % (2-11); NEUTROPHILS 85.3 % (40-80); RBC 3.92 10x6/uL (4.20-6.10); WBC 9.1 10x3/uL (4.8-10.8)
[2017-11-20 15:09] VITALS: BP 140/59
[2017-11-20 15:12] LABS: PLATELET COUNT 229 10x3/uL (130-400)
[2017-11-20 15:20] LABS: ANION GAP 9.6 mmol/L (8-16); CALCIUM 8.9 mg/dL (8.5-10.1); CARBON DIOXIDE 35.6 mmol/L (21.0-32.0); CREATININE - SERUM 1.6 mg/dL (0.6-1.3); POTASSIUM - SERUM 5.2 mmol/L (3.5-5.1)
[2017-11-20 20:36] VITALS: BP 146/62
[2017-11-21 01:20] VITALS: BP 146/59
[2017-11-21 05:31] VITALS: BP 124/58
[2017-11-21 06:47] LABS: BASOPHILS 0.2 % (0-2); EOSINOPHILS 0.5 % (0-7); HEMATOCRIT 35.9 % (42.0-54.0); HEMOGLOBIN 11.3 g/dL (13.5-17.5); IMMATURE GRANULOCYTES 3.3 % (0-5); LYMPHOCYTES 9.7 % (15-50); MCH 29.7 pg (26.0-34.0); MCHC 31.5 g/dL (31.0-37.0); MCV 94.5 fL (80.0-100.0); MEAN PLATELET VOLUME 9.6 fL (7.4-10.4); MONOCYTES 7.6 % (2-11); NEUTROPHILS 78.7 % (40-80); PLATELET COUNT 236 10x3/uL (130-400)
[2017-11-21 06:55] LABS: ANION GAP 6.2 mmol/L (8-16); CALCIUM 9.3 mg/dL (8.5-10.1); CARBON DIOXIDE 38.7 mmol/L (21.0-32.0); CREATININE - SERUM 1.4 mg/dL (0.6-1.3); POTASSIUM - SERUM 4.9 mmol/L (3.5-5.1)
[2017-11-21 08:04] VITALS: BP 118/50
[2017-11-21 13:22] VITALS: BP 124/58
[2017-11-21 15:45] VITALS: BP 122/64
[2017-11-21 19:00] VITALS: BP 135/47
[2017-11-22 04:00] VITALS: BP 151/75
[2017-11-22 05:12] LABS: BASOPHILS 0.2 % (0-2); EOSINOPHILS 0.3 % (0-7); HEMATOCRIT 39.4 % (42.0-54.0); HEMOGLOBIN 12.2 g/dL (13.5-17.5); MCH 29.8 pg (26.0-34.0); MCV 96.3 fL (80.0-100.0); MEAN PLATELET VOLUME 9.6 fL (7.4-10.4); NEUTROPHILS 80.5 % (40-80); PLATELET COUNT 274 10x3/uL (130-400); RBC 4.09 10x6/uL (4.20-6.10); RDW 16.4 % (11.5-14.5); WBC 11.6 10x3/uL (4.8-10.8)
[2017-11-22 05:35] LABS: ANION GAP 9.6 mmol/L (8-16); CALCIUM 9.5 mg/dL (8.5-10.1); POTASSIUM - SERUM 5.6 mmol/L (3.5-5.1)
[2017-11-22 05:38] LABS: CREATININE - SERUM 1.8 mg/dL (0.6-1.3)
[2017-11-22 08:31] VITALS: BP 138/53
[2017-11-22 12:00] VITALS: BP 172/63
[2017-11-22 19:00] VITALS: BP 133/58
[2017-11-23 04:00] VITALS: BP 151/54
[2017-11-23 06:04] LABS: BASOPHILS 0.2 % (0-2); EOSINOPHILS 0.1 % (0-7); HEMATOCRIT 39.5 % (42.0-54.0); HEMOGLOBIN 12.5 g/dL (13.5-17.5); IMMATURE GRANULOCYTES 7.9 % (0-5); MCH 30.3 pg (26.0-34.0); MCHC 31.6 g/dL (31.0-37.0); MCV 95.6 fL (80.0-100.0); MEAN PLATELET VOLUME 9.7 fL (7.4-10.4); MONOCYTES 7.4 % (2-11); NEUTROPHILS 75.4 % (40-80); PLATELET COUNT 291 10x3/uL (130-400); RBC 4.13 10x6/uL (4.20-6.10)
[2017-11-23 06:20] LABS: ANION GAP 8.3 mmol/L (8-16); CALCIUM 9.6 mg/dL (8.5-10.1); CARBON DIOXIDE 38.6 mmol/L (21.0-32.0); CREATININE - SERUM 1.5 mg/dL (0.6-1.3); POTASSIUM - SERUM 4.9 mmol/L (3.5-5.1)
[2017-11-23 08:11] VITALS: BP 100/70
[2017-11-23 12:29] VITALS: BP 118/57
[2017-11-23 16:11] VITALS: BP 127/68
[2017-11-24 04:27] VITALS: BP 189/71
[2017-11-24 06:26] LABS: BASOPHILS 0.4 % (0-2); EOSINOPHILS 0.1 % (0-7); HEMATOCRIT 41.8 % (42.0-54.0); IMMATURE GRANULOCYTES 8.8 % (0-5); LYMPHOCYTES 8.9 % (15-50); MCH 29.8 pg (26.0-34.0); MCHC 31.1 g/dL (31.0-37.0); MCV 95.9 fL (80.0-100.0); MEAN PLATELET VOLUME 9.4 fL (7.4-10.4); NEUTROPHILS 73.8 % (40-80); PLATELET COUNT 286 10x3/uL (130-400); RBC 4.36 10x6/uL (4.20-6.10); RDW 15.9 % (11.5-14.5)
[2017-11-24 06:45] LABS: ANION GAP 6.9 mmol/L (8-16); CALCIUM 9.4 mg/dL (8.5-10.1); CARBON DIOXIDE 39.7 mmol/L (21.0-32.0); CREATININE - SERUM 1.5 mg/dL (0.6-1.3); POTASSIUM - SERUM 4.6 mmol/L (3.5-5.1)
[2017-11-24 07:56] VITALS: BP 113/72
[2017-11-24 12:02] VITALS: BP 134/58
[2017-11-24 16:04] VITALS: BP 165/66
[2017-11-24 20:51] VITALS: BP 108/52
[2017-11-25 00:29] VITALS: BP 157/62
[2017-11-25 04:17] VITALS: BP 119/58
[2017-11-25 06:35] LABS: BASOPHILS 0.8 % (0-2); EOSINOPHILS 0.8 % (0-7); HEMOGLOBIN 13.4 g/dL (13.5-17.5); IMMATURE GRANULOCYTES 10.6 % (0-5); LYMPHOCYTES 13.7 % (15-50); MCH 30.1 pg (26.0-34.0); MCHC 31.2 g/dL (31.0-37.0); MCV 96.6 fL (80.0-100.0); MEAN PLATELET VOLUME 9.6 fL (7.4-10.4); MONOCYTES 9.6 % (2-11); NEUTROPHILS 64.5 % (40-80); PLATELET COUNT 304 10x3/uL (130-400); RBC 4.45 10x6/uL (4.20-6.10); WBC 18.1 10x3/uL (4.8-10.8)
[2017-11-25 07:10] LABS: CALCIUM 9.4 mg/dL (8.5-10.1); CREATININE - SERUM 1.5 mg/dL (0.6-1.3); POTASSIUM - SERUM 4.2 mmol/L (3.5-5.1)
[2017-11-25 07:11] LABS: ANION GAP 7.2 mmol/L (8-16)
[2017-11-25 08:00] VITALS: BP 104/39
[2017-11-25 12:00] VITALS: BP 114/48
[2017-11-25] MEDS ORDERED: PREDNISONE10 MG PO (15:28)
== END 2017-11-25 17:01 | disposition home or self-care (01) | DRG 189 ==
LOC: D.ER 14:33 → EDSTATUS 14:52 → D.M2 14:54 → D.SDCHOLD 14:54 → D.M2 15:47
PROVIDERS: Emergency Medicine
DX: J96.21 Acute and chronic respiratory failure with hypoxia (principal); J44.1 Chronic obstructive pulmonary disease with (acute) exacerbation; I50.32 Chronic diastolic (congestive) heart failure; N17.9 Acute kidney failure, unspecified; J40 Bronchitis, not specified as acute or chronic; I08.1 Rheumatic disorders of both mitral and tricuspid valves; D64.9 Anemia, unspecified; E11.65 Type 2 diabetes mellitus with hyperglycemia; G47.33 Obstructive sleep apnea (adult) (pediatric); Z87.891 Personal history of nicotine dependence

== ENCOUNTER 2017-11-27 11:58 | Inpatient (IN) | payer MEDICARE, BC ==
[~2017-11-27] VITALS: Ht 175.3 cm; Wt 115.8 kg
[2017-11-27] VITALS (16 sets, daily range): BP systolic 107–135; BP diastolic 46–73; BMI 39.6
--- NOTE | ~2017-11-27 | EC ---
PATIENT:BRIDGER CANTU DATE OF SERVICE: 11/27/17 SEX: M MEDICAL RECORD: [id number] DATE OF : 45 LOCATION:D. D.212 AGE OF PATIENT: 72 ADMISSION DATE: 11/27/17 REFERRING PHYSICIAN: INTERPRETING PHYSICIAN: RENY ODELL MD ECHOCARDIOGRAM REPORT ECHO CHARGES 5 ECHO LIMITED CLINICAL DIAGNOSIS: ASSESS FOR VEGATATION ECHOCARDIOGRAPHIC MEASUREMENTS (adult normal given) AC root (d.<3.7cm) 3.3 cm LV Septum d (<1.2 cm> 1.5 cm Valve Excursion 1.6 cm LV Septum (systole) 1.7 cm Left Atria (s.<4.0cm> 3.8 cm LVPW d(<1.2cm) 1.5 cm RV (d.<2.3cm) 5.4 cm LVPW (sytole) 2.0 cm LV diastole(<5.6CM) 5.8 cm MV E-F(>70mm/sec) cm LV systole 4.2 cm LVOT Diameter cm MV exc.(>10mm) cm Est.ejection fraction (50-75%) % Pericardial Effusion N DOPPLER: LVIT cm/sec A cm/sec E cm/sec LA cm/sec RVSP mmHg LVOT cm/sec AOP1/2T m/s Asc. Ao cm/sec RVOT cm/sec RA cm/sec PA cm/sec AV Gradient Peak mmHg AV Mean mmHg AV Area cm MV Gradient Peak mmHg MV Mean mmHg MV Area cm COMMENTS: Public Health Educator: Nancy [employer] Manager: Rd Odell TAPE# PACS DATE OF SERVICE: 12/01/2017 PROCEDURE: Transthoracic echocardiogram. This is a limited study, looking for vegetation. There is no obvious vegetation; however, the quality of the study is very poor. We do not see endocardial or valvular structure as well at all. It is not diagnostic echocardiogram. Suggest repeating it with possible contrast to enhance intraluminal surfaces, which may allow us to get a better estimation, but there are no gross valvular insufficiencies and the overall function appears to be ECHOCARDIOGRAM REPORT [id number] BRIDGER CANTU grossly normal. TRANSINT:[id number] Voice Confirmation ID: [id number] DOCUMENT ID: [id number] 12/12/2017 Edited to correct date of service, dmm. RENY ODELL MD at 1038 CC: [id number] DICTATION DATE: 12/06/17 0846 INDUSTRIAL PRODUCTION MANAGER: 12/06/17 1043 DIS IN 12/07/17 [place] [id number] [place] [address]
[~2017-11-27 11:58] MED LIST changes: +COREG6.25 MG PO
[2017-11-27 12:41] LABS: BASOPHILS 0.3 % (0-2); EOSINOPHILS 0.4 % (0-7); HEMATOCRIT 41.1 % (42.0-54.0); HEMOGLOBIN 12.7 g/dL (13.5-17.5); IMMATURE GRANULOCYTES 4.9 % (0-5); LYMPHOCYTES 9.2 % (15-50); MCH 30.5 pg (26.0-34.0); MCHC 30.9 g/dL (31.0-37.0); MCV 98.8 fL (80.0-100.0); MEAN PLATELET VOLUME 9.5 fL (7.4-10.4); MONOCYTES 8.6 % (2-11); NEUTROPHILS 76.6 % (40-80); RBC 4.16 10x6/uL (4.20-6.10); WBC 14.1 10x3/uL (4.8-10.8)
[2017-11-27 12:44] LABS: PLATELET COUNT 215 10x3/uL (130-400)
[2017-11-27 12:54] LABS: ALBUMIN 2.8 g/dL (3.4-5.0); ANION GAP 4.5 mmol/L (8-16); BILIRUBIN - TOTAL 0.84 mg/dL (0.2-1.3); CALCIUM 9.2 mg/dL (8.5-10.1); CREATININE - SERUM 1.7 mg/dL (0.6-1.3); PROTEIN - SERUM 6.3 g/dL (6.4-8.2)
[2017-11-27 12:55] LABS: CARBON DIOXIDE 41.5 mmol/L (21.0-32.0)
[2017-11-27 17:13] LABS: APPEARANCE CLEAR (CLEAR); BILIRUBIN NEGATIVE (NEGATIVE); COLOR YELLOW (YELLOW); GLUCOSE 100 mg/dL (NEGATIVE); KETONE NEGATIVE (NEGATIVE); NITRITE NEGATIVE (NEGATIVE); PROTEIN NEGATIVE (NEGATIVE); SPECIFIC GRAVITY 1.025 (1.005-1.020); UROBILINOGEN NORMAL (NORMAL)
[2017-11-27 17:15] LABS: RED CELLS - URINE OCC /hpf (0-5)
[2017-11-28] VITALS (25 sets, daily range): BP systolic 91–133; BP diastolic 43–83
[2017-11-28 05:50] LABS: BASOPHILS 0.1 % (0-2); EOSINOPHILS 0.1 % (0-7); HEMATOCRIT 39.7 % (42.0-54.0); HEMOGLOBIN 12.2 g/dL (13.5-17.5); IMMATURE GRANULOCYTES 2.9 % (0-5); LYMPHOCYTES 5.4 % (15-50); MCH 30.3 pg (26.0-34.0); MCHC 30.7 g/dL (31.0-37.0); MCV 98.5 fL (80.0-100.0); MEAN PLATELET VOLUME 9.8 fL (7.4-10.4); MONOCYTES 7.6 % (2-11); NEUTROPHILS 83.9 % (40-80); PLATELET COUNT 217 10x3/uL (130-400); RBC 4.03 10x6/uL (4.20-6.10); RDW 16.3 % (11.5-14.5); WBC 13.3 10x3/uL (4.8-10.8)
[2017-11-28 06:16] LABS: ALBUMIN 2.6 g/dL (3.4-5.0); ANION GAP 2.4 mmol/L (8-16); BILIRUBIN - TOTAL 0.58 mg/dL (0.2-1.3); CALCIUM 9.3 mg/dL (8.5-10.1); CREATININE - SERUM 1.4 mg/dL (0.6-1.3); MAGNESIUM - SERUM 2.4 mg/dL (1.8-2.4); PROTEIN - SERUM 6.2 g/dL (6.4-8.2)
[2017-11-28 06:21] LABS: CARBON DIOXIDE 45.6 mmol/L (21.0-32.0)
[2017-11-29] VITALS (16 sets, daily range): BP systolic 87–144; BP diastolic 40–91; Ht 175.3 cm; Wt 115.8 kg
[2017-11-29 05:32] LABS: BASOPHILS 0.1 % (0-2); EOSINOPHILS 0 % (0-7); HEMATOCRIT 36.3 % (42.0-54.0); HEMOGLOBIN 11.4 g/dL (13.5-17.5); IMMATURE GRANULOCYTES 1.1 % (0-5); LYMPHOCYTES 4.1 % (15-50); MCH 30.4 pg (26.0-34.0); MCHC 31.4 g/dL (31.0-37.0); MCV 96.8 fL (80.0-100.0); MEAN PLATELET VOLUME 9.9 fL (7.4-10.4); MONOCYTES 9.5 % (2-11); NEUTROPHILS 85.2 % (40-80); PLATELET COUNT 201 10x3/uL (130-400); RBC 3.75 10x6/uL (4.20-6.10); RDW 16.2 % (11.5-14.5); WBC 13.1 10x3/uL (4.8-10.8)
[2017-11-29 05:51] LABS: ANION GAP 6.1 mmol/L (8-16); CALCIUM 9.2 mg/dL (8.5-10.1); CARBON DIOXIDE 36.3 mmol/L (21.0-32.0); CREATININE - SERUM 1.4 mg/dL (0.6-1.3); POTASSIUM - SERUM 5.4 mmol/L (3.5-5.1)
[2017-11-30 04:00] VITALS: BP 133/48
[2017-11-30 07:09] LABS: BASOPHILS 0 % (0-2); EOSINOPHILS 0.1 % (0-7); HEMATOCRIT 38.3 % (42.0-54.0); IMMATURE GRANULOCYTES 1.3 % (0-5); LYMPHOCYTES 8.7 % (15-50); MCH 29.8 pg (26.0-34.0); MCHC 31.3 g/dL (31.0-37.0); MEAN PLATELET VOLUME 9.8 fL (7.4-10.4); MONOCYTES 12.4 % (2-11); NEUTROPHILS 77.5 % (40-80); PLATELET COUNT 197 10x3/uL (130-400); RBC 4.03 10x6/uL (4.20-6.10); RDW 15.7 % (11.5-14.5)
[2017-11-30 07:13] LABS: WBC 9.2 10x3/uL (4.8-10.8)
[2017-11-30 07:21] LABS: IMMUNOGLOBULIN E 79 IU/mL (0-100)
[2017-11-30 07:29] LABS: CALCIUM 8.9 mg/dL (8.5-10.1); CARBON DIOXIDE 38.8 mmol/L (21.0-32.0); CREATININE - SERUM 1.2 mg/dL (0.6-1.3); POTASSIUM - SERUM 4.8 mmol/L (3.5-5.1)
[2017-11-30 07:52] VITALS: BP 140/68
[2017-11-30 11:33] VITALS: BP 161/81
[2017-11-30 15:36] VITALS: BP 129/64
[2017-11-30 19:00] VITALS: BP 127/63
[2017-12-01 04:00] VITALS: BP 145/60
[2017-12-01 05:50] LABS: BASOPHILS 0.1 % (0-2); EOSINOPHILS 0 % (0-7); HEMOGLOBIN 11.7 g/dL (13.5-17.5); IMMATURE GRANULOCYTES 1.5 % (0-5); LYMPHOCYTES 5.9 % (15-50); MCH 30.1 pg (26.0-34.0); MCHC 31.6 g/dL (31.0-37.0); MCV 95.1 fL (80.0-100.0); MEAN PLATELET VOLUME 9.8 fL (7.4-10.4); MONOCYTES 9.7 % (2-11); NEUTROPHILS 82.8 % (40-80); PLATELET COUNT 198 10x3/uL (130-400); RBC 3.89 10x6/uL (4.20-6.10); RDW 16.1 % (11.5-14.5); WBC 7.3 10x3/uL (4.8-10.8)
[2017-12-01 06:11] LABS: CALC OSMOLALITY 290 mosm/kg (275-300); CALCIUM 8.8 mg/dL (8.5-10.1); CARBON DIOXIDE 35.6 mmol/L (21.0-32.0); CHLORIDE - SERUM 95 mmol/L (98-107); SODIUM 135 mmol/L (136-145); UREA NITROGEN 48 mg/dL (7-18); eGFR NON AFRICAN AMERICAN 78 mL/min (90-120)
[2017-12-01 06:25] LABS: GLUCOSE 235 mg/dL (74-106)
[2017-12-01 07:57] VITALS: BP 148/68
[2017-12-01 11:18] VITALS: BP 140/64
[2017-12-01 15:38] VITALS: BP 141/61
[2017-12-01 21:43] VITALS: BP 145/58
[2017-12-02 06:12] LABS: BASOPHILS 0.1 % (0-2); EOSINOPHILS 0.1 % (0-7); HEMATOCRIT 39.1 % (42.0-54.0); HEMOGLOBIN 12.5 g/dL (13.5-17.5); IMMATURE GRANULOCYTES 1.7 % (0-5); LYMPHOCYTES 9.4 % (15-50); MCH 30.1 pg (26.0-34.0); MCV 94.2 fL (80.0-100.0); MEAN PLATELET VOLUME 9.4 fL (7.4-10.4); MONOCYTES 8.3 % (2-11); NEUTROPHILS 80.4 % (40-80); PLATELET COUNT 191 10x3/uL (130-400); RBC 4.15 10x6/uL (4.20-6.10); RDW 15.7 % (11.5-14.5); WBC 8.2 10x3/uL (4.8-10.8)
[2017-12-02 06:38] LABS: CALC OSMOLALITY 280 mosm/kg (275-300); CALCIUM 8.9 mg/dL (8.5-10.1); CARBON DIOXIDE 36.1 mmol/L (21.0-32.0); CHLORIDE - SERUM 95 mmol/L (98-107); CREATININE - SERUM 0.9 mg/dL (0.6-1.3); GLUCOSE 127 mg/dL (74-106); POTASSIUM - SERUM 4.7 mmol/L (3.5-5.1); SODIUM 135 mmol/L (136-145); UREA NITROGEN 37 mg/dL (7-18); VANCOMYCIN - TROUGH 6.8 ug/mL (10.0-20.0); eGFR NON AFRICAN AMERICAN 88 mL/min (90-120)
[2017-12-02 06:45] VITALS: BP 164/79
[2017-12-02 08:35] VITALS: BP 150/89
[2017-12-02 11:40] VITALS: BP 143/75
[2017-12-02 15:34] VITALS: BP 152/70
[2017-12-02 23:00] VITALS: BP 129/44
[2017-12-03 06:23] VITALS: BP 141/60
[2017-12-03 06:50] LABS: BASOPHILS 0.1 % (0-2); EOSINOPHILS 0 % (0-7); HEMATOCRIT 37.8 % (42.0-54.0); HEMOGLOBIN 11.8 g/dL (13.5-17.5); IMMATURE GRANULOCYTES 2.1 % (0-5); LYMPHOCYTES 8.2 % (15-50); MCHC 31.2 g/dL (31.0-37.0); MEAN PLATELET VOLUME 9.5 fL (7.4-10.4); MONOCYTES 6.4 % (2-11); NEUTROPHILS 83.2 % (40-80); PLATELET COUNT 181 10x3/uL (130-400); RBC 3.93 10x6/uL (4.20-6.10); RDW 15.5 % (11.5-14.5); WBC 6.7 10x3/uL (4.8-10.8)
[2017-12-03 06:56] LABS: MCV 96.2 fL (80.0-100.0)
[2017-12-03 06:59] LABS: CALC OSMOLALITY 291 mosm/kg (275-300); CARBON DIOXIDE 38.2 mmol/L (21.0-32.0); CHLORIDE - SERUM 99 mmol/L (98-107); CREATININE - SERUM 0.9 mg/dL (0.6-1.3); POTASSIUM - SERUM 5.3 mmol/L (3.5-5.1); SODIUM 138 mmol/L (136-145); UREA NITROGEN 33 mg/dL (7-18); eGFR NON AFRICAN AMERICAN 88 mL/min (90-120)
[2017-12-03 07:01] LABS: GLUCOSE 264 mg/dL (74-106)
[2017-12-03 08:04] VITALS: BP 132/56
[2017-12-03 11:34] VITALS: BP 149/79
[2017-12-03 15:37] VITALS: BP 135/58
[2017-12-03 21:36] VITALS: BP 140/64
[2017-12-04 01:29] VITALS: BP 143/67
[2017-12-04 06:40] LABS: BASOPHILS 0 % (0-2); EOSINOPHILS 0 % (0-7); HEMATOCRIT 36.1 % (42.0-54.0); HEMOGLOBIN 11.5 g/dL (13.5-17.5); IMMATURE GRANULOCYTES 1.5 % (0-5); MCH 30.3 pg (26.0-34.0); MCHC 31.9 g/dL (31.0-37.0); MEAN PLATELET VOLUME 9.2 fL (7.4-10.4); MONOCYTES 5.9 % (2-11); NEUTROPHILS 85.6 % (40-80); PLATELET COUNT 174 10x3/uL (130-400); RDW 15.2 % (11.5-14.5); WBC 8.1 10x3/uL (4.8-10.8)
[2017-12-04 06:52] LABS: CALC OSMOLALITY 289 mosm/kg (275-300); CALCIUM 8.8 mg/dL (8.5-10.1); CARBON DIOXIDE 36.1 mmol/L (21.0-32.0); CHLORIDE - SERUM 100 mmol/L (98-107); CREATININE - SERUM 0.8 mg/dL (0.6-1.3); GLUCOSE 255 mg/dL (74-106); POTASSIUM - SERUM 5.3 mmol/L (3.5-5.1); SODIUM 137 mmol/L (136-145); UREA NITROGEN 31 mg/dL (7-18); eGFR NON AFRICAN AMERICAN > 90 mL/min (90-120)
[2017-12-04 07:58] VITALS: BP 150/63
[2017-12-04 11:24] VITALS: BP 154/61
[2017-12-04 15:35] VITALS: BP 155/41
[2017-12-04 20:00] VITALS: BP 146/49
[2017-12-05] VITALS: BP 160/59
[2017-12-05 04:00] VITALS: BP 108/60
[2017-12-05 08:10] VITALS: BP 170/50
[2017-12-05 11:23] VITALS: BP 164/52
[2017-12-05 15:31] VITALS: BP 160/58
[2017-12-05 20:00] VITALS: BP 148/65
[2017-12-06 04:00] VITALS: BP 122/62
[2017-12-06 07:42] VITALS: BP 173/50
[2017-12-06 11:26] VITALS: BP 148/66
[2017-12-06 15:35] VITALS: BP 152/66
[2017-12-06 16:38] VITALS: BP 158/74
[2017-12-06 20:00] VITALS: BP 131/77
[2017-12-07] VITALS: BP 155/60
[2017-12-07 04:00] VITALS: BP 139/55
[2017-12-07 05:38] LABS: BASOPHILS 0.2 % (0-2); EOSINOPHILS 0.6 % (0-7); HEMATOCRIT 35.8 % (42.0-54.0); HEMOGLOBIN 11.4 g/dL (13.5-17.5); IMMATURE GRANULOCYTES 4.3 % (0-5); LYMPHOCYTES 9.9 % (15-50); MCH 30.3 pg (26.0-34.0); MCHC 31.8 g/dL (31.0-37.0); MCV 95.2 fL (80.0-100.0); MEAN PLATELET VOLUME 9.1 fL (7.4-10.4); MONOCYTES 5.3 % (2-11); NEUTROPHILS 79.7 % (40-80); PLATELET COUNT 174 10x3/uL (130-400); RBC 3.76 10x6/uL (4.20-6.10); RDW 14.9 % (11.5-14.5); WBC 10.3 10x3/uL (4.8-10.8)
[2017-12-07 06:17] LABS: CALC OSMOLALITY 279 mosm/kg (275-300); CALCIUM 8.9 mg/dL (8.5-10.1); CARBON DIOXIDE 34.4 mmol/L (21.0-32.0); CHLORIDE - SERUM 99 mmol/L (98-107); CREATININE - SERUM 0.8 mg/dL (0.6-1.3); GLUCOSE 257 mg/dL (74-106); POTASSIUM - SERUM 4.6 mmol/L (3.5-5.1); SODIUM 134 mmol/L (136-145); UREA NITROGEN 22 mg/dL (7-18); eGFR NON AFRICAN AMERICAN > 90 mL/min (90-120)
[2017-12-07 08:36] VITALS: BP 155/59
[2017-12-07] MEDS ORDERED: FLOMAX0.4 MG PO (11:31)
[2017-12-07] MEDS ORDERED: DALIRESP500 MCG PO (11:32)
[2017-12-07] MEDS ORDERED: MUCINEX DM ER1 EAC1 PO (11:32)
[2017-12-07] MEDS ORDERED: SINGULAIR10 MG PO (11:32)
[2017-12-07] MEDS ORDERED: PREDNISONE10 MG PO (11:33)
[2017-12-07 12:15] VITALS: BP 139/61
[2017-12-07 15:06] VITALS: BP 155/85
== END 2017-12-07 16:20 | DRG 189 ==
LOC: D.ER 11:58 → D.CVICU 15:00 → D.MS 15:00 → D.M2 15:00 → D.CVICU 15:34 → D.M2 11-29 20:10 → D.SDCHOLD 11-30 15:15 → D.M2 11-30 15:15
PROVIDERS: Emergency Medicine; Family Medicine; Internal Medicine Nephrology; Internal Medicine Pulmonary Disease
PROC: 5A09457 Assistance with Respiratory Ventilation, 24-96 Consecutive Hours, Continuous Positive Airway Pressure (ICD-10-PCS; principal; 2017-11-27)
DX: J96.21 Acute and chronic respiratory failure with hypoxia (principal); J18.9 Pneumonia, unspecified organism; J44.1 Chronic obstructive pulmonary disease with (acute) exacerbation; N17.9 Acute kidney failure, unspecified; I50.32 Chronic diastolic (congestive) heart failure; J44.0 Chronic obstructive pulmonary disease with (acute) lower respiratory infection; I13.0 Hypertensive heart and chronic kidney disease with heart failure and stage 1 through stage 4 chronic kidney disease, or unspecified chronic kidney disease; J98.11 Atelectasis; E11.21 Type 2 diabetes mellitus with diabetic nephropathy; E11.40 Type 2 diabetes mellitus with diabetic neuropathy, unspecified; E66.01 Morbid (severe) obesity due to excess calories; K21.9 Gastro-esophageal reflux disease without esophagitis; J20.9 Acute bronchitis, unspecified; J96.22 Acute and chronic respiratory failure with hypercapnia; E11.65 Type 2 diabetes mellitus with hyperglycemia; E11.22 Type 2 diabetes mellitus with diabetic chronic kidney disease; N18.9 Chronic kidney disease, unspecified; Z68.37 Body mass index [BMI] 37.0-37.9, adult; N40.1 Benign prostatic hyperplasia with lower urinary tract symptoms; R33.8 Other retention of urine; E87.5 Hyperkalemia; I08.1 Rheumatic disorders of both mitral and tricuspid valves; D64.9 Anemia, unspecified; G47.33 Obstructive sleep apnea (adult) (pediatric); I25.10 Atherosclerotic heart disease of native coronary artery without angina pectoris; I87.8 Other specified disorders of veins; Z99.81 Dependence on supplemental oxygen; Z87.891 Personal history of nicotine dependence; Z95.5 Presence of coronary angioplasty implant and graft; Z77.090 Contact with and (suspected) exposure to asbestos

== ENCOUNTER 2017-12-22 00:20 | Inpatient (IN) | payer MEDICARE, BC ==
[~2017-12-22] VITALS: Ht 175.3 cm; Wt 113.6 kg
[~2017-12-22 00:20] MED LIST changes: +DALIRESP500 MCG PO; +FLOMAX0.4 MG PO; +SINGULAIR10 MG PO
[2017-12-22 00:59] LABS: BASOPHILS 0.1 % (0-2); EOSINOPHILS 1.2 % (0-7); HEMATOCRIT 31.9 % (42.0-54.0); HEMOGLOBIN 9.7 g/dL (13.5-17.5); IMMATURE GRANULOCYTES 4.8 % (0-5); LYMPHOCYTES 9.8 % (15-50); MCH 29.8 pg (26.0-34.0); MCHC 30.4 g/dL (31.0-37.0); MCV 98.2 fL (80.0-100.0); MONOCYTES 10.6 % (2-11); NEUTROPHILS 73.5 % (40-80); PLATELET COUNT 181 10x3/uL (130-400); RBC 3.25 10x6/uL (4.20-6.10); RDW 15.7 % (11.5-14.5)
[2017-12-22 01:19] LABS: ALBUMIN 2.2 g/dL (3.4-5.0); ANION GAP 8.5 mmol/L (8-16); BILIRUBIN - TOTAL 0.8 mg/dL (0.2-1.3); CALCIUM 7.9 mg/dL (8.5-10.1); CARBON DIOXIDE 38.9 mmol/L (21.0-32.0); CREATININE - SERUM 1.5 mg/dL (0.6-1.3); POTASSIUM - SERUM 3.4 mmol/L (3.5-5.1); PROTEIN - SERUM 6.3 g/dL (6.4-8.2)
[2017-12-22 01:35] LABS: MAGNESIUM - SERUM 1.1 mg/dL (1.8-2.4); TROPONIN-I 0.022 ng/mL (0.000-0.060)
[2017-12-22 06:06] VITALS: BP 108/56
[2017-12-22 08:02] VITALS: BP 113/63
[2017-12-22 11:45] VITALS: BP 108/51
[2017-12-22 15:57] VITALS: Ht 175.3 cm; Wt 113.6 kg
[2017-12-22 17:11] VITALS: BP 119/61
[2017-12-22 20:00] VITALS: BP 115/55
[2017-12-22 20:26] LABS: HEMOGLOBIN A1C 7.7 % (4.8-6.0)
[2017-12-23] VITALS: BP 129/59; BP 132/86
[2017-12-23 04:00] VITALS: BP 111/50
[2017-12-23 08:49] VITALS: BP 109/43
[2017-12-23 11:33] VITALS: BP 114/53
[2017-12-23 15:35] VITALS: BP 111/50
== END 2017-12-23 15:59 | DRG 638 ==
LOC: D.ER 00:20 → D.M2 02:06
PROVIDERS: Emergency Medicine; Family Medicine
DX: E11.649 Type 2 diabetes mellitus with hypoglycemia without coma (principal); I50.32 Chronic diastolic (congestive) heart failure; E11.40 Type 2 diabetes mellitus with diabetic neuropathy, unspecified; I25.10 Atherosclerotic heart disease of native coronary artery without angina pectoris; Z95.5 Presence of coronary angioplasty implant and graft; J44.9 Chronic obstructive pulmonary disease, unspecified; E87.6 Hypokalemia; Z87.891 Personal history of nicotine dependence

== ENCOUNTER 2017-12-24 14:09 | Inpatient (IN) | payer MEDICARE, BC ==
[~2017-12-24] VITALS: Ht 175.3 cm; Wt 117.9 kg
--- NOTE | ~2017-12-24 | EC ---
PATIENT:BRIDGER CANTU DATE OF SERVICE: 12/24/17 SEX: M MEDICAL RECORD: [id number] DATE OF : 45 LOCATION:D.MS [facility] AGE OF PATIENT: 72 ADMISSION DATE: 12/24/17 REFERRING PHYSICIAN: INTERPRETING PHYSICIAN: RENY ODELL MD ECHOCARDIOGRAM REPORT ECHO CHARGES 5 ECHO LIMITED 1 DOPPLER ECHO COLOR FLOW 2 DOPPLER ECHO PULSE CLINICAL DIAGNOSIS: CHF ECHOCARDIOGRAPHIC MEASUREMENTS (adult normal given) AC root (d.<3.7cm) 0 cm LV Septum d (<1.2 cm> 0 cm Valve Excursion 0 cm LV Septum (systole) 0 cm Left Atria (s.<4.0cm> 0 cm LVPW d(<1.2cm) 0 cm RV (d.<2.3cm) 0 cm LVPW (sytole) 0 cm LV diastole(<5.6CM) 0 cm MV E-F(>70mm/sec) 0 cm LV systole 0 cm LVOT Diameter 0 cm MV exc.(>10mm) 0 cm Est.ejection fraction (50-75%) 0 % Pericardial Effusion N DOPPLER: LVIT 0 cm/sec A 0 cm/sec E 0 cm/sec LA 0 cm/sec RVSP 19.0 mmHg LVOT 0 cm/sec AOP1/2T 0 m/s Asc. Ao 0 cm/sec RVOT 0 cm/sec RA 0 cm/sec PA 0 cm/sec AV Gradient Peak 0 mmHg AV Mean 0 mmHg AV Area 0 cm MV Gradient Peak 0 mmHg MV Mean 0 mmHg MV Area 0 cm COMMENTS: LIMITED STUDY (2-D,COLOR,DOPPLER) COMPLETE ECHO DONE ON 09/30/17 AND LIMITED ECHO DONE ON 11/19/17 AND ON 12/01/17 Cyber Policy And Strategy Planner: Germania VIVEROS Buildings And Grounds Coordinator: 4 Dr. Odell TAPE# PACS DATE OF SERVICE: 12/25/2017 PROCEDURE: Transthoracic echocardiogram. FINDINGS: 1. Left ventricle shows normal function, EF of 55%. There is no gross abnormal valvular issues. This a very limited study. The aortic valve is structurally normal. ECHOCARDIOGRAM REPORT [id number] BRIDGER CANTU 2. The mitral valve appears to be normal. There is trace mitral regurgitation. 3. The tricuspid valve has normal tricuspid regurgitation, RVSP is 19 mmHg. In comparison to previous echoes, there are no significant changes. TRANSINT:[id number] Voice Confirmation ID: [id number] DOCUMENT ID: [id number] 12/29/2017 Edited to correct date of service, dmm. RENY ODELL MD CC: [id number] DICTATION DATE: 12/26/17 1108 MANAGER TITLE: 12/26/17 1340 DIS IN 12/27/17 [place] [id number] [place] [id number]
[2017-12-24 15:07] LABS: BASOPHILS 0.2 % (0-2); EOSINOPHILS 0.5 % (0-7); HEMATOCRIT 30.2 % (42.0-54.0); HEMOGLOBIN 9.1 g/dL (13.5-17.5); IMMATURE GRANULOCYTES 2.6 % (0-5); LYMPHOCYTES 6.8 % (15-50); MCH 29.4 pg (26.0-34.0); MCHC 30.1 g/dL (31.0-37.0); MCV 97.4 fL (80.0-100.0); MEAN PLATELET VOLUME 9.3 fL (7.4-10.4); NEUTROPHILS 85.9 % (40-80); PLATELET COUNT 210 10x3/uL (130-400); RDW 15.6 % (11.5-14.5); WBC 9.5 10x3/uL (4.8-10.8)
[2017-12-24 15:21] LABS: ALKALINE PHOSPHATASE 46 U/L (46-116); ALT (SGPT) 24 U/L (10-68); CALC OSMOLALITY 293 mosm/kg (275-300); CARBON DIOXIDE 36.1 mmol/L (21.0-32.0); CHLORIDE - SERUM 98 mmol/L (98-107); CREATININE - SERUM 1.8 mg/dL (0.6-1.3); POTASSIUM - SERUM 3.9 mmol/L (3.5-5.1); PROTEIN - SERUM 6.5 g/dL (6.4-8.2); SODIUM 140 mmol/L (136-145); UREA NITROGEN 40 mg/dL (7-18); eGFR NON AFRICAN AMERICAN 40 mL/min (90-120)
[2017-12-24 15:24] LABS: GLUCOSE 186 mg/dL (74-106)
[2017-12-24 15:33] LABS: CKMB 1.1 U/L (0.0-3.6); CREATINE KINASE 42 UL (21-232); PRO BNP 383 pg/mL (0-125); TROPONIN-I < 0.017 ng/mL (0.000-0.060)
[2017-12-24 19:57] VITALS: BP 153/68
[2017-12-24 23:26] LABS: CKMB 0.8 U/L (0.0-3.6); CREATINE KINASE 42 UL (21-232); TROPONIN-I < 0.017 ng/mL (0.000-0.060)
[2017-12-25] VITALS: BP 137/58
[2017-12-25 04:00] VITALS: BP 133/63
[2017-12-25 05:11] LABS: BASOPHILS 0.1 % (0-2); EOSINOPHILS 0 % (0-7); HEMATOCRIT 30.9 % (42.0-54.0); HEMOGLOBIN 9.4 g/dL (13.5-17.5); IMMATURE GRANULOCYTES 2.3 % (0-5); MCH 29.5 pg (26.0-34.0); MCHC 30.4 g/dL (31.0-37.0); MCV 96.9 fL (80.0-100.0); MEAN PLATELET VOLUME 9.5 fL (7.4-10.4); MONOCYTES 3.8 % (2-11); NEUTROPHILS 85.8 % (40-80); PLATELET COUNT 247 10x3/uL (130-400); RBC 3.19 10x6/uL (4.20-6.10); RDW 15.2 % (11.5-14.5); WBC 11.3 10x3/uL (4.8-10.8)
[2017-12-25 05:27] LABS: CALC OSMOLALITY 300 mosm/kg (275-300); CALCIUM 7.8 mg/dL (8.5-10.1); CARBON DIOXIDE 31.7 mmol/L (21.0-32.0); CHLORIDE - SERUM 100 mmol/L (98-107); CREATININE - SERUM 1.5 mg/dL (0.6-1.3); GLUCOSE 231 mg/dL (74-106); POTASSIUM - SERUM 4.4 mmol/L (3.5-5.1); SODIUM 142 mmol/L (136-145); UREA NITROGEN 43 mg/dL (7-18); eGFR NON AFRICAN AMERICAN 49 mL/min (90-120)
[2017-12-25 06:19] LABS: CREATINE KINASE 45 UL (21-232); TROPONIN-I < 0.017 ng/mL (0.000-0.060)
[2017-12-25 06:42] VITALS: BP 153/68; BMI 37.6
[2017-12-25 10:28] VITALS: BP 137/59
[2017-12-25 21:35] VITALS: BP 108/48
[2017-12-25 23:22] VITALS: BP 122/62
[2017-12-26 04:52] VITALS: BP 121/54
[2017-12-26 05:19] LABS: BASOPHILS 0.1 % (0-2); EOSINOPHILS 0.1 % (0-7); HEMATOCRIT 33.4 % (42.0-54.0); HEMOGLOBIN 10.1 g/dL (13.5-17.5); IMMATURE GRANULOCYTES 3.5 % (0-5); LYMPHOCYTES 6.5 % (15-50); MCH 29.4 pg (26.0-34.0); MCHC 30.2 g/dL (31.0-37.0); MCV 97.4 fL (80.0-100.0); MEAN PLATELET VOLUME 9.6 fL (7.4-10.4); NEUTROPHILS 85.8 % (40-80); RBC 3.43 10x6/uL (4.20-6.10); RDW 15.2 % (11.5-14.5)
[2017-12-26 05:28] LABS: PLATELET COUNT 309 10x3/uL (130-400); WBC 15.4 10x3/uL (4.8-10.8)
[2017-12-26 05:38] LABS: ALBUMIN 2.3 g/dL (3.4-5.0); ANION GAP 13.6 mmol/L (8-16); BILIRUBIN - TOTAL 0.36 mg/dL (0.2-1.3); CALCIUM 8.8 mg/dL (8.5-10.1); CARBON DIOXIDE 36.4 mmol/L (21.0-32.0); CREATININE - SERUM 1.5 mg/dL (0.6-1.3); PROTEIN - SERUM 7.2 g/dL (6.4-8.2)
[2017-12-26 09:22] VITALS: BP 147/68
[2017-12-26 15:55] VITALS: BP 130/53
[2017-12-26 19:33] VITALS: BP 139/62
[2017-12-26 23:00] VITALS: BP 139/62
[2017-12-27 01:29] VITALS: BP 153/69
[2017-12-27 04:59] VITALS: BP 125/68
[2017-12-27 06:56] LABS: BASOPHILS 0.1 % (0-2); EOSINOPHILS 0.1 % (0-7); HEMATOCRIT 34.4 % (42.0-54.0); HEMOGLOBIN 10.4 g/dL (13.5-17.5); IMMATURE GRANULOCYTES 4.3 % (0-5); LYMPHOCYTES 10.9 % (15-50); MCH 29.6 pg (26.0-34.0); MCHC 30.2 g/dL (31.0-37.0); MEAN PLATELET VOLUME 9.3 fL (7.4-10.4); MONOCYTES 5.9 % (2-11); NEUTROPHILS 78.7 % (40-80); PLATELET COUNT 310 10x3/uL (130-400); RBC 3.51 10x6/uL (4.20-6.10); RDW 15.4 % (11.5-14.5); WBC 13.8 10x3/uL (4.8-10.8)
[2017-12-27 07:08] LABS: ALBUMIN 2.3 g/dL (3.4-5.0); ANION GAP 9.1 mmol/L (8-16); BILIRUBIN - TOTAL 0.31 mg/dL (0.2-1.3); CALCIUM 8.7 mg/dL (8.5-10.1); CARBON DIOXIDE 38.7 mmol/L (21.0-32.0); CREATININE - SERUM 1.5 mg/dL (0.6-1.3); POTASSIUM - SERUM 3.8 mmol/L (3.5-5.1); PROTEIN - SERUM 6.7 g/dL (6.4-8.2)
[2017-12-27 08:28] VITALS: BP 138/70
[2017-12-27 12:08] VITALS: BP 111/56
[2017-12-27 15:27] VITALS: Ht 175.3 cm; Wt 117.9 kg
[2017-12-27] MEDS ORDERED: FUROSEMIDE20 MG PO (15:36)
[2017-12-27] MEDS ORDERED: K-DUR20 MEQ PO (15:38)
[2017-12-27 16:19] VITALS: BP 108/52
== END 2017-12-27 17:58 | DRG 177 ==
LOC: D.ER 14:09 → D.MS 17:00 → D.SDCHOLD 12-27 12:52 → D.MS 12-27 12:52
PROVIDERS: Family Medicine
DX: J69.0 Pneumonitis due to inhalation of food and vomit (principal); J96.22 Acute and chronic respiratory failure with hypercapnia; I50.33 Acute on chronic diastolic (congestive) heart failure; J44.1 Chronic obstructive pulmonary disease with (acute) exacerbation; N17.9 Acute kidney failure, unspecified; I13.0 Hypertensive heart and chronic kidney disease with heart failure and stage 1 through stage 4 chronic kidney disease, or unspecified chronic kidney disease; N18.9 Chronic kidney disease, unspecified; E11.22 Type 2 diabetes mellitus with diabetic chronic kidney disease; N40.1 Benign prostatic hyperplasia with lower urinary tract symptoms; R33.8 Other retention of urine; E11.40 Type 2 diabetes mellitus with diabetic neuropathy, unspecified; E11.21 Type 2 diabetes mellitus with diabetic nephropathy; I87.2 Venous insufficiency (chronic) (peripheral); I25.10 Atherosclerotic heart disease of native coronary artery without angina pectoris; Z95.5 Presence of coronary angioplasty implant and graft; G47.33 Obstructive sleep apnea (adult) (pediatric); Z91.19 Patient's noncompliance with other medical treatment and regimen

== ENCOUNTER 2017-12-27 17:03 | Inpatient (IN) | payer MEDICARE, BC ==
[~2017-12-27] VITALS: Ht 175.3 cm; Wt 113.7 kg
--- NOTE | ~2017-12-27 | RHP ---
PATIENT: BRIDGER CANTU MEDICAL RECORD: [id number] ACCOUNT: [id number] LOCATION:[facility]1115 : 45 ADMISSION DATE: 12/27/17 REHABILITATION HISTORY AND PHYSICAL EXAMINATION POST ADMISSION PHYSICIAN EXAMINATION POST-ADMISSION PHYSICAL EXAM AND HISTORY AND PHYSICAL DATE OF ADMISSION: 12/27/2017 ADMITTING DIAGNOSES: Acute exacerbation of chronic obstructive pulmonary disease with associated myopathy. HISTORY OF PRESENT ILLNESS: The patient is a 72-year-old gentleman who was actually over in [place] in an inpatient rehab when he was transferred on to [place] secondary to swelling and marked shortness of breath. He was recently in a SNF unit after multiple hospitalizations. He presented to the ED with several-day onset of shortness of breath, nonproductive cough, increased swelling, fatigue, acute mental status change, lethargy, and weakness. He has a past medical history of neuropathy, severe COPD, mild CHF, obstructive sleep apnea, CPAP, diabetes with neuropathy, nephropathy, lower extremity stasis changes with an ulcer. 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 He also has history of sleep apnea and has been compliant with his CPAP. The patient was a tobacco smoker for over 52 years, but quit about 3 months ago. The patient presented to our acute rehab in the past and had very good outcomes and his family would like him admitted here. He has a history of multiple re-hospitalizations recently. He was sent to a SNF. He has declined physically and upon interview, feels he would benefit greatly from another stay here. He is currently on telemetry. He is on O2 4 liters via nasal cannula. We are monitoring his intake and output and also monitoring his edema, and third spacing of fluids. He has been on IV steroids, diuretics and antibiotics. He is moderately independent to independent with his ADLs and was independent with mobility, able to ambulate without an assistive device upon last discharge from our rehab. He is currently set up for mod assist with his ADLs due to shortness of breath, mod assist to total assist with mobility using a rolling walker. He would like to discharge home with his to get back to his prior level of functioning. COMORBIDITIES: Include dyspnea, anemia, renal insufficiency, aspiration risk, hyperglycemia, obstructive lung disease, [id number]-[id number] hypercapnic respiratory failure, pneumonia, COPD, leukocytosis, chronic kidney disease, coronary artery disease, BPH, hyperlipidemia, hypertension, restless leg syndrome, O2 dependence, nephropathy, increasing shortness of breath, acute mental status changes, history of mild congestive heart failure, history of tobacco use that he quit 3 months ago, COPD, acute renal insufficiency, anasarca, and urinary retention. PAST MEDICAL HISTORY: Significant for neuropathy, Oshea's palsy, diabetes, PTCA, coronary artery disease, COPD, pneumonia, BPH, CHF and history of tobacco use. PAST SURGICAL HISTORY: Includes knee surgery, back surgery, and angioplasty with stent placement. ALLERGIES: No known drug allergies. HISTORY AND PHYSICAL [id number] BRIDGER CANTU MEDICATIONS: Current medications include insulin, he is on 55 units of 70/30 t.i.d. He is on Daliresp 500 mcg daily, Protonix 40 mg daily, prednisone 20 mg daily, he is on a taper. He is on MiraLax 17 g in 8 ounces of water daily, budesonide 0.5 mg b.i.d., Brovana 15 mcg b.i.d., Uroxatral 10 mg at bedtime, DuoNeb updrafts. He is on Flomax 0.4 mg at bedtime, Zocor 40 mg at bedtime, Requip 1 mg at bedtime, potassium 20 mEq b.i.d., Singular 10 mg at bedtime, Zestril 2.5 mg daily, hydrochlorothiazide 12.5 mg daily. He is on Mucinex D 1 tab b.i.d., Neurontin 200 mg t.i.d., Lasix 60 mg t.i.d., Proscar 5 mg at bedtime, fenofibrate 145 mg daily, and carvedilol 6.25 mg b.i.d. with meals. HABITS: Quit smoking about 3 months ago. No alcohol or tobacco use. FAMILY HISTORY: Noncontributory. SOCIAL HISTORY: The patient hopes to return back home with his . REVIEW OF SYSTEMS: GENERAL: He does complain of some weakness and fatigue. HEENT: Denies cold, cough, or congestion. CARDIOVASCULAR: Denies any chest pain. LUNGS: Does complain of shortness of breath especially with activity. PHYSICAL EXAMINATION: VITAL SIGNS: Stable. He is afebrile. GENERAL: Well-developed, somewhat obese gentleman in no acute distress, alert upon exam. HEENT: Normocephalic and atraumatic. Mucosa moist. NECK: Supple. No lymphadenopathy. LUNGS: Clear in upper espinosa. He does have decreased breath sounds in the bases secondary to his body habitus. HEART: Regular rate and rhythm. ABDOMEN: Benign. EXTREMITIES: He does have peripheral edema. NEUROLOGIC: Seems intact. LABORATORY DATA: His white count is 12.1, H&H of 10.8 and 35.2, platelet count of 302. His sodium is 143, potassium 4.1, BUN and creatinine of 48 and 1.4. Blood sugar was noted to be 169. 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 The patient has potential to make improvement. We will institute the following multidisciplinary therapies including to, but not limited to physical, occupational, respiratory, speech, nutritional services, prosthetics and orthotics. Given his complex condition and risk for more complications, rehabilitation services cannot be provided at a low level of care such as assisted facility. PLAN: 1. Admit to [facility] for intensive inpatient therapy to include the following disciplines: A. Physical therapy to improve gait, all transfer skills and bed mobility to a modified independent level. B. Occupational therapy to improve activities of daily living to a modified HISTORY AND PHYSICAL [id number] BRIDGER CANTU independent level. C. Case management to assist with discharge planning and placement options. D. Nutrition to assist with nutritional needs. E. Rehabilitation nursing to assist in monitoring the patient's underlying medical conditions and to assist with any type of bowel or bladder management. 2. The patient's current medications and medical care will be continued. 3. The patient will be placed on standard fall precautions. 4. The patient's estimated length of stay is approximately 7-10 days. 5. Discuss this patient during care team staff meeting this week. 6. We will go ahead and continue to taper him on his steroids, watch his breathing closely, watch his swelling peripherally and hopefully get home with his soon. TRANSINT:[id number] Voice Confirmation ID: [id number] DOCUMENT ID: [id number] RAJI notes whether there has been none or any medical/functional change since admission: - RAJI attests patient continues to be appropriate for IRF: - VLADIMIR MUHAMMAD MD at 1455 CC: [id number] DICTATION DATE: 12/28/17826 LABOR ECONOMICS TEACHER: 12/28/17 1215 ADM IN [place] [id number] [place] [address]
[~2017-12-27 17:03] MED LIST changes: +FUROSEMIDE20 MG PO; +K-DUR20 MEQ PO
[2017-12-27 18:19] VITALS: BMI 37.7
[2017-12-27 19:30] VITALS: BP 115/59
[2017-12-28 06:41] LABS: BASOPHILS 0.2 % (0-2); EOSINOPHILS 0.4 % (0-7); HEMATOCRIT 35.2 % (42.0-54.0); HEMOGLOBIN 10.8 g/dL (13.5-17.5); IMMATURE GRANULOCYTES 5.7 % (0-5); MCH 30.2 pg (26.0-34.0); MCHC 30.7 g/dL (31.0-37.0); MCV 98.3 fL (80.0-100.0); MEAN PLATELET VOLUME 9.5 fL (7.4-10.4); MONOCYTES 7.7 % (2-11); PLATELET COUNT 302 10x3/uL (130-400); RBC 3.58 10x6/uL (4.20-6.10); RDW 15.3 % (11.5-14.5); WBC 12.1 10x3/uL (4.8-10.8)
[2017-12-28 06:45] LABS: ANION GAP 8.5 mmol/L (8-16); CALCIUM 8.9 mg/dL (8.5-10.1); CARBON DIOXIDE 39.6 mmol/L (21.0-32.0); CREATININE - SERUM 1.4 mg/dL (0.6-1.3); POTASSIUM - SERUM 4.1 mmol/L (3.5-5.1)
[2017-12-28 07:45] VITALS: BP 112/59
[2017-12-28 10:32] VITALS: Ht 175.3 cm; Wt 113.7 kg
[2017-12-28 19:30] VITALS: BP 126/67
[2017-12-29 08:00] VITALS: BP 108/47
[2017-12-29 19:30] VITALS: BP 111/52
[2017-12-30 06:23] LABS: BASOPHILS 0.1 % (0-2); EOSINOPHILS 0.6 % (0-7); HEMATOCRIT 36.4 % (42.0-54.0); IMMATURE GRANULOCYTES 5.8 % (0-5); LYMPHOCYTES 7.8 % (15-50); MCH 29.6 pg (26.0-34.0); MCHC 30.2 g/dL (31.0-37.0); MCV 98.1 fL (80.0-100.0); MEAN PLATELET VOLUME 9.2 fL (7.4-10.4); MONOCYTES 6.1 % (2-11); NEUTROPHILS 79.6 % (40-80); PLATELET COUNT 306 10x3/uL (130-400); RBC 3.71 10x6/uL (4.20-6.10); RDW 15.5 % (11.5-14.5); WBC 14.1 10x3/uL (4.8-10.8)
[2017-12-30 06:40] LABS: ANION GAP 5.2 mmol/L (8-16); CREATININE - SERUM 1.5 mg/dL (0.6-1.3); POTASSIUM - SERUM 4.5 mmol/L (3.5-5.1)
[2017-12-30 06:41] LABS: CARBON DIOXIDE 43.3 mmol/L (21.0-32.0)
[2017-12-30 10:29] VITALS: BP 97/51
[2017-12-30 23:54] VITALS: BP 133/59
[2017-12-31 09:47] VITALS: BP 102/56
[2017-12-31 20:00] VITALS: BP 124/61
[2018-01-01 14:11] VITALS: BP 94/44
[2018-01-01 19:40] VITALS: BP 120/63
[2018-01-02 06:43] LABS: BASOPHILS 0.2 % (0-2); EOSINOPHILS 0.6 % (0-7); HEMATOCRIT 31.6 % (42.0-54.0); HEMOGLOBIN 9.7 g/dL (13.5-17.5); IMMATURE GRANULOCYTES 5.4 % (0-5); LYMPHOCYTES 12.4 % (15-50); MCH 29.4 pg (26.0-34.0); MCHC 30.7 g/dL (31.0-37.0); MCV 95.8 fL (80.0-100.0); MEAN PLATELET VOLUME 9.2 fL (7.4-10.4); MONOCYTES 9.9 % (2-11); NEUTROPHILS 71.5 % (40-80); PLATELET COUNT 283 10x3/uL (130-400); RDW 15.5 % (11.5-14.5); WBC 10.7 10x3/uL (4.8-10.8)
[2018-01-02 06:56] LABS: ANION GAP 9.3 mmol/L (8-16); CALCIUM 8.9 mg/dL (8.5-10.1); CARBON DIOXIDE 37.9 mmol/L (21.0-32.0); CREATININE - SERUM 1.6 mg/dL (0.6-1.3); POTASSIUM - SERUM 4.2 mmol/L (3.5-5.1)
[2018-01-02 08:00] VITALS: BP 83/43
[2018-01-02 11:47] VITALS: BP 111/44
[2018-01-02 16:00] VITALS: BP 110/42
[2018-01-02 20:31] VITALS: BP 116/58
[2018-01-02 20:40] VITALS: BP 116/58
[2018-01-03 08:00] VITALS: BP 113/53
[2018-01-03 21:00] VITALS: BP 128/53
[2018-01-04 06:49] LABS: BASOPHILS 0.1 % (0-2); EOSINOPHILS 0.5 % (0-7); HEMATOCRIT 31.5 % (42.0-54.0); HEMOGLOBIN 9.6 g/dL (13.5-17.5); IMMATURE GRANULOCYTES 3.4 % (0-5); LYMPHOCYTES 11.9 % (15-50); MCH 29.3 pg (26.0-34.0); MCHC 30.5 g/dL (31.0-37.0); MEAN PLATELET VOLUME 9.4 fL (7.4-10.4); MONOCYTES 11.2 % (2-11); NEUTROPHILS 72.9 % (40-80); PLATELET COUNT 263 10x3/uL (130-400); RBC 3.28 10x6/uL (4.20-6.10); RDW 15.4 % (11.5-14.5); WBC 9.9 10x3/uL (4.8-10.8)
[2018-01-04 07:18] LABS: ANION GAP 7.9 mmol/L (8-16); CALCIUM 8.9 mg/dL (8.5-10.1); CARBON DIOXIDE 37.6 mmol/L (21.0-32.0); CREATININE - SERUM 1.5 mg/dL (0.6-1.3); POTASSIUM - SERUM 4.5 mmol/L (3.5-5.1)
[2018-01-04 07:46] VITALS: BP 102/48
[2018-01-04 19:13] VITALS: BP 101/49
[2018-01-05 08:00] VITALS: BP 105/48
[2018-01-05 20:17] VITALS: BP 130/62
[2018-01-06 05:43] LABS: BASOPHILS 0.3 % (0-2); HEMATOCRIT 31.1 % (42.0-54.0); HEMOGLOBIN 9.6 g/dL (13.5-17.5); IMMATURE GRANULOCYTES 4.1 % (0-5); LYMPHOCYTES 13.8 % (15-50); MCH 29.7 pg (26.0-34.0); MCHC 30.9 g/dL (31.0-37.0); MCV 96.3 fL (80.0-100.0); MEAN PLATELET VOLUME 9.7 fL (7.4-10.4); MONOCYTES 11.6 % (2-11); NEUTROPHILS 69.2 % (40-80); PLATELET COUNT 253 10x3/uL (130-400); RBC 3.23 10x6/uL (4.20-6.10); RDW 15.7 % (11.5-14.5); WBC 9.8 10x3/uL (4.8-10.8)
[2018-01-06 05:53] LABS: ANION GAP 7.8 mmol/L (8-16); CALCIUM 8.9 mg/dL (8.5-10.1); CARBON DIOXIDE 38.7 mmol/L (21.0-32.0); CREATININE - SERUM 1.7 mg/dL (0.6-1.3); POTASSIUM - SERUM 4.5 mmol/L (3.5-5.1)
[2018-01-06 08:00] VITALS: BP 107/47
== END 2018-01-06 13:30 | disposition home health service (06) | DRG 190 ==
LOC: D.REHAB 17:03
PROVIDERS: Emergency Medicine
DX: J44.1 Chronic obstructive pulmonary disease with (acute) exacerbation (principal); J96.22 Acute and chronic respiratory failure with hypercapnia; J69.0 Pneumonitis due to inhalation of food and vomit; I13.0 Hypertensive heart and chronic kidney disease with heart failure and stage 1 through stage 4 chronic kidney disease, or unspecified chronic kidney disease; N17.9 Acute kidney failure, unspecified; G72.9 Myopathy, unspecified; E11.22 Type 2 diabetes mellitus with diabetic chronic kidney disease; N18.9 Chronic kidney disease, unspecified; R41.82 Altered mental status, unspecified; N40.0 Benign prostatic hyperplasia without lower urinary tract symptoms; E78.5 Hyperlipidemia, unspecified; G25.81 Restless legs syndrome; G62.9 Polyneuropathy, unspecified; D64.9 Anemia, unspecified; I25.10 Atherosclerotic heart disease of native coronary artery without angina pectoris; D72.829 Elevated white blood cell count, unspecified; R33.9 Retention of urine, unspecified; R60.1 Generalized edema; Z87.891 Personal history of nicotine dependence; Z99.81 Dependence on supplemental oxygen; E11.40 Type 2 diabetes mellitus with diabetic neuropathy, unspecified

== ENCOUNTER 2018-08-30 20:51 | Inpatient (IN) | payer MEDICARE, BC ==
[~2018-08-30] VITALS: Ht 175.3 cm; Wt 104.3 kg
--- NOTE | ~2018-08-30 | OP ---
PATIENT NAME: BRIDGER CANTU MEDICAL RECORD: [id number] :45 LOCATION:D.MS [id number] ADMISSION DATE:08/31/18 SURGEON: MARQUIS HARRIS MD DATE OF OPERATION: 08/31/2018 PREOPERATIVE DIAGNOSIS: Foreign body in the left distal tibia. POSTOPERATIVE DIAGNOSIS: Foreign body in the left distal tibia. PROCEDURE: Removal of foreign body in the left distal tibia (catfish fin). SURGEON: Marquis Harris MD ANESTHESIA: General. INTRAOPERATIVE COMPLICATIONS: Essentially none. SUMMARY OF PATHOLOGIC FINDINGS: While ER radiographs seemed to show this was in the soft tissue, this catfish fin measuring approximately 2 cm long was impaled into the tibia. Attempts at removal under minimal dissection were not possible. This required open dissection as well as bony removal to remove this foreign body. OPERATIVE SUMMARY IN DETAIL: After obtaining the appropriate preoperative orthopedic surgery consent as well as anesthetic consultation, evaluation, and clearance, the patient was brought to the operating room and placed on the operating table in the supine position. After general laryngeal mask airway was administered, the patient's left lower extremity was prepped and draped in routine sterile fashion. The area about this was gently dissected until the tip of this could be felt. Multiple attempts at removing this without further dissection resulted in failure even under fluoroscopic views. At this point, the area was dissected down to the level of the bone and visualized just underneath the periosteum was the foreign body. Dissection was carried out around it and again attempts were made to try and remove this without further dissection and again they were not possible. Very small curette was then used to begin curettaging around it and curettaging about 1 cm in allowed for removal of the catfish fin with reverse barbs in its entirety. This was then submitted to pathology for final evaluation and recording. The wound was copiously irrigated. Curettage was then taken deep down into the wound tract. Curettage was followed by further irrigation and then simple wound closure was achieved with 3-0 Prolene. Sterile dressings were applied. The patient was awakened and taken to recovery in stable condition. All final needle and sponge counts were correct. TRANSINT:[id number] Voice Confirmation ID: [id number] DOCUMENT ID: [id number] MARQUIS HARRIS MD at 1351 CC: [id number] DICTATION DATE: 09/14/18 1052 MANAGER SYSTEMS: 09/14/18 1215 DIS IN 09/04/18 [place] [id number] [place] [id number]
[2018-08-30 23:32] LABS: HEMATOCRIT 38.1 % (42.0-54.0); HEMOGLOBIN 12.1 g/dL (13.5-17.5); LYMPHOCYTES 12.3 % (15-50); MCH 28.5 pg (26.0-34.0); MCHC 31.8 g/dL (31.0-37.0); MCV 89.9 fL (80.0-100.0); MEAN PLATELET VOLUME 8.7 fL (7.4-10.4); NEUTROPHILS 80.5 % (40-80); PLATELET COUNT 269 10x3/uL (130-400); RBC 4.24 10x6/uL (4.20-6.10); RDW 13.3 % (11.5-14.5); WBC 11.4 10x3/uL (4.8-10.8)
[2018-08-30 23:41] LABS: APTT 25.8 SECONDS (22.8-39.4); INR 1.09 (0.85-1.17); PROTIME 13.7 SECONDS (11.6-15.0)
[2018-08-30 23:45] LABS: ANION GAP 4.3 mmol/L (8-16); BILIRUBIN - TOTAL 0.31 mg/dL (0.2-1.3); CALCIUM 8.4 mg/dL (8.5-10.1); CARBON DIOXIDE 36.4 mmol/L (21.0-32.0); CREATININE - SERUM 3.5 mg/dL (0.6-1.3); POTASSIUM - SERUM 4.7 mmol/L (3.5-5.1); PROTEIN - SERUM 7.1 g/dL (6.4-8.2)
[2018-08-30 23:53] LABS: APPEARANCE CLEAR (CLEAR); COLOR YELLOW (YELLOW)
[2018-08-30 23:54] LABS: BILIRUBIN NEGATIVE (NEGATIVE); GLUCOSE NEGATIVE (NEGATIVE); KETONE NEGATIVE (NEGATIVE); NITRITE NEGATIVE (NEGATIVE); PROTEIN NEGATIVE (NEGATIVE); SPECIFIC GRAVITY 1.005 (1.005-1.020); UROBILINOGEN NORMAL (NORMAL)
[2018-08-31] VITALS (10 sets, daily range): BP systolic 112–141; BP diastolic 38–57; Ht 175.3 cm; Wt 104.3 kg
[2018-08-31 01:07] LABS: CKMB 1.3 U/L (0.0-3.6); CREATINE KINASE 85 UL (21-232); PRO BNP 1006 pg/mL (0-125)
[2018-08-31 01:08] LABS: TROPONIN-I < 0.017 ng/mL (0.000-0.060)
[2018-08-31 15:15] LABS: HEMATOCRIT 39.6 % (42.0-54.0); HEMOGLOBIN 12.6 g/dL (13.5-17.5); LYMPHOCYTES 5.5 % (15-50); MCH 28.7 pg (26.0-34.0); MCHC 31.8 g/dL (31.0-37.0); MCV 90.2 fL (80.0-100.0); MEAN PLATELET VOLUME 9.8 fL (7.4-10.4); NEUTROPHILS 90.6 % (40-80); PLATELET COUNT 253 10x3/uL (130-400); RBC 4.39 10x6/uL (4.20-6.10); RDW 13.2 % (11.5-14.5); WBC 10.4 10x3/uL (4.8-10.8)
[2018-09-01] VITALS: BP 114/54
[2018-09-01 04:00] VITALS: BP 102/49
[2018-09-01 06:08] LABS: BASOPHILS 0.2 % (0-2); EOSINOPHILS 1.3 % (0-7); HEMATOCRIT 36.2 % (42.0-54.0); HEMOGLOBIN 11.2 g/dL (13.5-17.5); IMMATURE GRANULOCYTES 0.3 % (0-5); LYMPHOCYTES 11.9 % (15-50); MCHC 30.9 g/dL (31.0-37.0); MEAN PLATELET VOLUME 9.3 fL (7.4-10.4); MONOCYTES 7.2 % (2-11); NEUTROPHILS 79.1 % (40-80); PLATELET COUNT 217 10x3/uL (130-400); RBC 3.86 10x6/uL (4.20-6.10); RDW 14.1 % (11.5-14.5); WBC 11.5 10x3/uL (4.8-10.8)
[2018-09-01 06:27] LABS: MCV 93.8 fL (80.0-100.0)
[2018-09-01 06:38] LABS: ALBUMIN 2.5 g/dL (3.4-5.0); ANION GAP 7.1 mmol/L (8-16); BILIRUBIN - TOTAL 0.16 mg/dL (0.2-1.3); CALCIUM 8.8 mg/dL (8.5-10.1); CARBON DIOXIDE 35.2 mmol/L (21.0-32.0); CREATININE - SERUM 2.7 mg/dL (0.6-1.3); MAGNESIUM - SERUM 1.7 mg/dL (1.8-2.4); POTASSIUM - SERUM 4.3 mmol/L (3.5-5.1); PROTEIN - SERUM 6.4 g/dL (6.4-8.2)
[2018-09-01 08:13] VITALS: BP 127/44; BP 143/77
[2018-09-01 12:00] VITALS: BP 134/52
[2018-09-01 19:49] VITALS: BP 136/40
[2018-09-02] VITALS: BP 118/51
[2018-09-02 04:00] VITALS: BP 138/47
[2018-09-02 05:16] LABS: BASOPHILS 0.2 % (0-2); HEMATOCRIT 42.1 % (42.0-54.0); HEMOGLOBIN 12.9 g/dL (13.5-17.5); IMMATURE GRANULOCYTES 0.5 % (0-5); MCH 29.2 pg (26.0-34.0); MCHC 30.6 g/dL (31.0-37.0); MCV 95.2 fL (80.0-100.0); MEAN PLATELET VOLUME 9.7 fL (7.4-10.4); MONOCYTES 8.5 % (2-11); NEUTROPHILS 78.8 % (40-80); PLATELET COUNT 237 10x3/uL (130-400); RBC 4.42 10x6/uL (4.20-6.10); RDW 14.4 % (11.5-14.5); WBC 13.3 10x3/uL (4.8-10.8)
[2018-09-02 06:05] LABS: ALBUMIN 2.8 g/dL (3.4-5.0); ANION GAP 7.5 mmol/L (8-16); BILIRUBIN - TOTAL 0.23 mg/dL (0.2-1.3); CALCIUM 9.4 mg/dL (8.5-10.1); CARBON DIOXIDE 32.8 mmol/L (21.0-32.0); PHOSPHOROUS 3.3 mg/dL (2.5-4.9); POTASSIUM - SERUM 4.3 mmol/L (3.5-5.1); PROTEIN - SERUM 7.3 g/dL (6.4-8.2)
[2018-09-02 06:06] LABS: CREATININE - SERUM 1.9 mg/dL (0.6-1.3)
[2018-09-02 09:25] VITALS: BP 162/64
[2018-09-02 19:58] VITALS: BP 114/63
[2018-09-03] VITALS: BP 130/45
[2018-09-03 04:00] VITALS: BP 128/50
[2018-09-03 05:33] LABS: BASOPHILS 0.3 % (0-2); EOSINOPHILS 2.2 % (0-7); HEMATOCRIT 40.3 % (42.0-54.0); HEMOGLOBIN 12.5 g/dL (13.5-17.5); IMMATURE GRANULOCYTES 0.5 % (0-5); MCH 29.2 pg (26.0-34.0); MCV 94.2 fL (80.0-100.0); MEAN PLATELET VOLUME 9.8 fL (7.4-10.4); MONOCYTES 9.5 % (2-11); NEUTROPHILS 74.5 % (40-80); PLATELET COUNT 250 10x3/uL (130-400); RBC 4.28 10x6/uL (4.20-6.10); RDW 14.2 % (11.5-14.5)
[2018-09-03 07:06] LABS: ALBUMIN 2.7 g/dL (3.4-5.0); ANION GAP 9.6 mmol/L (8-16); BILIRUBIN - TOTAL 0.27 mg/dL (0.2-1.3); CALCIUM 9.6 mg/dL (8.5-10.1); CARBON DIOXIDE 34.1 mmol/L (21.0-32.0); CREATININE - SERUM 1.6 mg/dL (0.6-1.3); PHOSPHOROUS 3.1 mg/dL (2.5-4.9); POTASSIUM - SERUM 4.7 mmol/L (3.5-5.1); PROTEIN - SERUM 6.4 g/dL (6.4-8.2)
[2018-09-03 09:32] VITALS: BP 132/71
[2018-09-03 16:00] VITALS: BP 126/86
[2018-09-03 21:11] VITALS: BP 114/63
[2018-09-04] VITALS: BP 109/58
[2018-09-04 05:29] LABS: BASOPHILS 0.2 % (0-2); EOSINOPHILS 2.1 % (0-7); HEMATOCRIT 38.5 % (42.0-54.0); IMMATURE GRANULOCYTES 0.7 % (0-5); LYMPHOCYTES 14.8 % (15-50); MCH 29.1 pg (26.0-34.0); MCHC 31.2 g/dL (31.0-37.0); MCV 93.4 fL (80.0-100.0); MEAN PLATELET VOLUME 9.8 fL (7.4-10.4); MONOCYTES 7.7 % (2-11); NEUTROPHILS 74.5 % (40-80); PLATELET COUNT 228 10x3/uL (130-400); RBC 4.12 10x6/uL (4.20-6.10); RDW 14.1 % (11.5-14.5); WBC 9.7 10x3/uL (4.8-10.8)
[2018-09-04 05:34] LABS: ALBUMIN 2.4 g/dL (3.4-5.0); ANION GAP 8.5 mmol/L (8-16); BILIRUBIN - TOTAL 0.25 mg/dL (0.2-1.3); CALCIUM 9.5 mg/dL (8.5-10.1); CARBON DIOXIDE 31.3 mmol/L (21.0-32.0); CREATININE - SERUM 1.5 mg/dL (0.6-1.3); PHOSPHOROUS 3.5 mg/dL (2.5-4.9); POTASSIUM - SERUM 4.8 mmol/L (3.5-5.1); PROTEIN - SERUM 6.6 g/dL (6.4-8.2)
[2018-09-04 06:05] VITALS: BP 120/68
[2018-09-04] MEDS ORDERED: Levaquin PO (08:13)
[2018-09-04] MEDS ORDERED: KEFLEX500 MG PO (08:13)
[2018-09-04] MEDS ORDERED: NORCO 10-325 TA1 TAB PO (08:14)
[2018-09-04 08:38] VITALS: BP 149/59
== END 2018-09-04 10:54 | disposition home or self-care (01) | DRG 908 ==
LOC: D.ER 20:51 → D.MS 08-31 02:22
PROVIDERS: Family Medicine; Orthopaedic Surgery
PROC: 0QCH0ZZ Extirpation of Matter from Left Tibia, Open Approach (ICD-10-PCS; principal; 2018-08-31 17:45)
DX: S91.042A Puncture wound with foreign body, left ankle, initial encounter (principal); I13.0 Hypertensive heart and chronic kidney disease with heart failure and stage 1 through stage 4 chronic kidney disease, or unspecified chronic kidney disease; I50.32 Chronic diastolic (congestive) heart failure; N17.9 Acute kidney failure, unspecified; N18.9 Chronic kidney disease, unspecified; E11.22 Type 2 diabetes mellitus with diabetic chronic kidney disease; E11.65 Type 2 diabetes mellitus with hyperglycemia; Z87.891 Personal history of nicotine dependence; E11.43 Type 2 diabetes mellitus with diabetic autonomic (poly)neuropathy; K31.84 Gastroparesis; E86.0 Dehydration; G47.33 Obstructive sleep apnea (adult) (pediatric); N40.1 Benign prostatic hyperplasia with lower urinary tract symptoms; R33.8 Other retention of urine; J44.9 Chronic obstructive pulmonary disease, unspecified; W18.30XA Fall on same level, unspecified, initial encounter